=== PATIENT | male | born 1930 | race Caucasian/White ===

== ENCOUNTER 2016-08-04 21:24 | Inpatient (IN) | payer OTHER ==
[~2016-08-04] VITALS: Ht 162.6 cm; Wt 95.3 kg
[~2016-08-04 21:24] MED LIST: ASPIRIN EC325 MG PO; CARDIZEM CD120 MG PO; ELIQUIS5 MG PO; FLOMAX0.4 M1 PO; KEFLEX500 MG PO; LISINOPRIL10 M1 PO; LOPRESSOR50 MG PO; METOPROLOL TART50 MG PO; OMEPRAZOLE20 M2 PO; SIMVASTATIN80 MG PO
--- NOTE | 2016-08-04 22:21 | ED DYSPNEA/ASTHMA COMPLAINT ---
History of Present Illness General Chief Complaint: Dyspnea (COPD, CHF, Other) Stated Complaint: BAD COUGH/DIFF BREATHING Source: patient Exam Limitations: no limitations Vital Signs & Intake/Output Vital Signs & Intake/Output Vital Signs Date Time Temp Pulse Resp B/P Pulse O2 O2 Flow FiO2 Ox Delivery Rate 08/05 1100 Nasal 2.0L Cannula 08/05 1059 97 Nasal 2.0L Cannula 08/05 0959 130/72 08/05 0958 130/72 08/05 0656 98.4 74 20 110/54 94 08/05 0237 95 Nasal 2.0L Cannula 08/05 0200 98.5 75 20 114/56 93 Room Air 08/05 0145 95 Nasal 2.0L Cannula 08/05 0030 98.2 74 20 109/55 94 Room Air 08/05 0002 94 Room Air 08/05 0002 24 88 Room Air 08/05 0002 20 94 Room Air 08/04 2138 98.1 57 28 115/65 96 Room Air ED Intake and Output 08/05 0000 08/04 1200 Intake Total Output Total Balance Patient 206 lb Weight Allergies Coded Allergies: NO KNOWN ALLERGIES (10/04/13) Triage Note: PT TO ED C/O BAD COUGH, DIFF BREATHING AND CHEST PAIN WITH COUGH AND DEEP INSPIRATION "ALL DAY" ALSO C/O HEADACHE. RR 28 PT STATES "THIS ALWAYS JHAPPENS WHEN MY BREATHING GETS BAD" PMH OF COPD Triage Nurses Notes Reviewed? yes Onset: Gradual Duration: constant Timing: recent history Severity: severe Activities at Onset: none Prior Episodes/Possible Cause: occasional episodes HPI: Patient is a 85-year-old male with a past medical history of COPD not on home O2 , atrial fibrillation currently on ELIQUIS who presents emergency room saying that today patient had a gradual onset of not feeling well productive yellow cough and shortness of breath and dyspnea on exertion. Patient states that he took nebulizer treatments at home without improvement of his symptoms. Positive sick contacts prior to onset of symptoms by family members. Denies any fevers but does have chills. Denies any chest pain or pain jaw pain nausea vomiting leg swelling, hemoptysis. Patient is a former smoker (EVERARDO ROJO) Reconcile Medications Albuterol Sulfate (Proair Hfa) 90 MCG HFA.AER.AD 2 PUF INH Q4-6 PRN PRN COPD (Reported) Apixaban (Eliquis) 5 MG TAB 5 MG PO BID ATRIAL FIBRILATION TWICE DAILY DILTIAZEM HCL (Cardizem Cd) 120 MG CER 120 10 PO DAILY HYPERTENSION Ipratropium/Albuterol Sulfate (Iprat-Albut 0.5-3(2.5) MG/3 Ml) 0.5 MG-3 MG (2.5 MG BASE)/3 ML AMPUL.NEB 1 VIAL INH DAILY PRN COPD (Reported) Lisinopril 10 MG TABLET 1 TAB PO DAILY BP (Reported) Metoprolol Tartrate (Lopressor) 50 MG TAB 50 MG PO BID heart rate Multivitamin (One Daily Multivitamin) 1 EACH TABLET 1 TAB PO DAILY SUPPLEMENT (Reported) Omeprazole 20 MG CAPSULE.DR 1 CAP PO DAILY GI (Reported) Psyllium Husk (Metamucil) 3.4 GRAM/5.4 GRAM POWDER 1 Scoopful PO QPM PRN CONSTIPATION (Reported) Tamsulosin HCl (Flomax) 0.4 MG CAP.ER.24H 2 CAP PO DAILY PROSTATE (Reported) (THUAN VAZQUEZ,ANALI) Past History Travel History Traveled to [place] past 21 day No Medical History Any Pertinent Medical History? see below for history Neurological: NONE EENT: tonsillectomy Cardiovascular: CAD, hypertension Respiratory: COPD Gastrointestinal: RECTAL ABCESS 25 YRS AGO HIATAL HERNIA Hepatic: NONE Renal: NONE, nephrolithiasis Musculoskeletal: NONE, osteoarthritis Psychiatric: NONE Endocrine: NONE Blood Disorders: NONE Cancer(s): prostate cancer MANAGER OF INTERNAL AUDIT/Reproductive: NONE Other Medical Hx: appendectomy, tonsillectomy, back surgery for herniated disc, right inguinal hernia repiar, esophageal reflux, osteoarthritis adenoma of the prostate, coronary artery disease s/p CABG, COPD, hypertension History of MRSA: Yes History of VRE: No History of CDIFF: No Pneumonia Vaccine: 03/16/12 Influenza Vaccine: 03/16/14 Surgical History Surgical History: STENTS CARDIAC BYPASS Psychosocial History Who do you live with Spouse Services at Home None What is your primary language Persian Tobacco Use: Quit >30 days ago ETOH Use: occasional use Illicit Drug Use: denies illicit drug use Family History Family History, If Any: FATHER FH: diabetes mellitus FATHER Relation not specified for: FH: hypertension Hx Contributory? No (NAILA LEON,EVERARDO) Review of Systems Review of Systems Constitutional: Reports: see HPI, chills. Denies: fever. EENTM: Reports: no symptoms. Respiratory: Reports: see HPI, cough, short of breath. Cardiovascular: Reports: see HPI. Denies: chest pain, palpitations. GI: Reports: no symptoms. Genitourinary: Reports: no symptoms. Musculoskeletal: Reports: no symptoms. Skin: Reports: no symptoms. Neurological/Psychological: Reports: no symptoms. Hematologic/Endocrine: Reports: no symptoms. Immunologic/Allergic: Reports: no symptoms. All Other Systems: Reviewed and Negative (EVERARDO ROJO) Physical Exam Physical Exam General Appearance: obese, MILD RESPIRATORY DISTRESS Respiratory: chest non-tender, quiet respiration, decreased breath sounds, wheezing (MILD EXPIRATORY) Comments: HEENT: Normal EENT exam, extraocular motion intact, no nystagmus. Pupils equally round and reactive to light and accommodation. Nose is atraumatic. External auditory canal and Tympanic membranes clear. Pharynx normal. No swelling or edema. Neck: Supple, no lymphadenopathy, normal range of motion without pain or tenderness Back: Nontender, no CVA tenderness. Cardiovascular: Regular rate and rhythms no murmurs rubs or gallops, normal JVP Abdomen: Soft, nontender nondistended, no appreciable organomegaly. Normal bowel sounds. No ascites Extremity: Bilateral lower extremity trace pitting edema noted, no calf tenderness to palpation, normal and equal pulses. Neuro: Alert oriented x3, motor sensory normal, Skin: No appreciable rash on exposed skin, skin is warm and dry. Psych: Mood and affect is normal, memory and judgment is normal. Core Measures ACS in differential dx? Yes Severe Sepsis Present: No Septic Shock Present: No (EVERARDO ROJO) Progress Differential Diagnosis: asthma, AMI, bronchitis, costochondritis, CHF, COPD, musculoskeletal pain, pericarditis, pulmonary embolism, pneumonia, pneumothorax, rib fracture, unstable angina Plan of Care: Orders Procedure Date/time Status Heart Healthy Diet 08/05 B Active RT: Evaluation 08/05 1100 Active Change service to 08/05 0725 Active CBC WITHOUT DIFFERENTIAL 08/05 0634 Complete Vital Signs 08/05 015 Active Teach/Educate 08/05 015 Active Nutritional Intake, Monitor 08/05 015 Active Isolation 08/05 0150 Active Intake & Output 08/05 015 Active Patient Care Conference 08/05 0150 Active Activity/Ambulation 08/05 015 Active TRC EVALUATION (GEN) 08/05 0122 Complete OXYGEN SETUP (GEN) 08/05 0122 Complete Pathway - chart 08/05 0122 Active House Staff 08/05 0122 Active Patient Data 08/05 0122 Active Code Status 08/05 0122 Active Admit to inpatient 08/05 0031 Active Vital Signs 08/05 0031 Active Patient Data 08/05 0026 Active THERAPIST ORDERS 08/05 UNK Complete VTE Mechanical Prophylaxis 08/05 UNK Active MISSING MEDICATION FORM 08/05 UNK Active LOWER RESPIRATORY CULTURE 08/04 2238 Active Telemetry/Pumpman 08/04 2218 Active RAPID VIRAL INFLUENZA A 08/04 2218 Complete BLOOD CULTURE 08/04 2218 Active TROPONIN LEVEL 08/04 2218 Complete D-DIMER 08/04 2218 Complete COMPREHENSIVE METABOLIC PANEL 08/04 2218 Complete CBC WITHOUT DIFFERENTIAL 08/04 2218 Complete B-TYPE NATRIURETIC PEP (BNP) 08/04 2218 Complete Intake & Output 08/04 2200 Active EKG 08/04 2125 Active Current Medications Sig/Nestor Start time Last Medication Dose Stop Time Status Admin Ipratropium [place] 2.5 ML BID 08/05 220 AC (Atrovent) Diltiazem HCl 120 MG DAILY 08/05 1000 AC (Cardizem CD) Enoxaparin Sodium 40 MG DAILY 08/05 1000 CAN (Lovenox) Lisinopril 10 MG DAILY 08/05 1000 CAN (Prinivil) Polyethylene Glycol 17 GM DAILY PRN 08/05 0145 AC (Miralax) Acetaminophen 650 MG Q6P PRN 08/05 0130 AC (Tylenol) Laboratory Tests 08/05/16 0830: CBC w Diff NO MAN DIFF REQ, RBC 4.51 L, MCV 83.0, MCH 27.9, RDW 15.2 H, MPV 8.3, Gran % 95.1 H, Lymphocytes % 4.2 L, Monocytes % 0.7 L, Eosinophils % 0, Basophils % 0 L, Absolute Granulocytes 7.4 H, Absolute Lymphocytes 0.3 L, Absolute Monocytes 0.1 L, Absolute Eosinophils 0, Absolute Basophils 0, PUBS MCHC 33.6 08/04/165: Anion Gap 10, Estimated GFR > 60, BUN/Creatinine Ratio 28.0 H, Glucose 116 H, Calcium 9.0, Total Bilirubin 0.7, AST 24, ALT 28, Alkaline Phosphatase 83, Troponin I 0.01, Svv-I-Elaojegepby Pept 339 H, Total Protein 7.2, Albumin 4.0, Globulin 3.2, Albumin/Globulin Ratio 1.3, D-Dimer < 200, CBC w Diff MAN DIFF ORDERED, RBC 4.68 L, MCV 83.1, MCH 27.8, RDW 15.3 H, MPV 7.9, Gran % 86.3 H, Lymphocytes % 5.8 L, Monocytes % 6.3, Eosinophils % 1.4, Basophils % 0.2, Absolute Granulocytes 8.6 H, Segmented Neutrophils 79 H, Band Neutrophils 6 H , Absolute Lymphocytes 0.6 L, Lymphocytes 9 L, Monocytes 4, Absolute Monocytes 0.6, Eosinophils 2, Absolute Eosinophils 0.1, Absolute Basophils 0, Platelet Estimate ADEQUATE, Anisocytosis 1+, PUBS MCHC 33.5 Microbiology 08/04 2244 NASOPHARYN: Influenza Virus A & B Rapid Smear - COMP 08/04 2244 BLOOD: Blood Culture - RES 08/04 2243 LOWER RESP: Respiratory Culture - RES 08/04 2243 LOWER RESP: Gram Stain - RES 08/04 2229 BLOOD: Blood Culture - RES Patient had IV steroids and nebulizer treatment and IV azithromycin for consistent COPD. Patient was ambulated down approximately 15 feet noted to be in mild respiratory distress and O2 saturation was 88% room air. Patient will be admitted for concerns of COPD. (EVERARDO ROJO) Diagnostic Imaging: Viewed by Me: Radiology Read. CXR Impression: SEE COMMENTS Initial ED EKG: SINUS RHYTHM NOTED AT 59 BPM, RBBB Comments: PATIENT: SHEILA LAURA PRESENT AGE: 85 PATIENT ACCOUNT NO: [id number] : 29 LOCATION: [facility] ORDERING PHYSICIAN: EVERARDO LEON SERVICE DATE: 08/04/16 EXAM TYPE: RAD - XRY-PORTABLE CHEST XRAY EXAMINATION: XR PORTABLE CHEST CLINICAL INFORMATION: Shortness of breath. COMPARISON: Chest radiography 02/16/2015. TECHNIQUE: Portable AP view of the chest was obtained. FINDINGS: Sternotomy wires and surgical material redemonstrated. The lungs are well expanded. Mild peribronchial thickening bilaterally. No lobar consolidation, overt pulmonary edema, pleural effusion, or pneumothorax. Mediastinal contours are unchanged. No acute osseous abnormalities. IMPRESSION: Bilateral peribronchial thickening may reflect a degree of small airways inflammation. No evidence of lobar pneumonia or overt CHF. (EVERARDO ROJO) Departure Departure Disposition: STILL A PATIENT Condition: Stable Clinical Impression Primary Impression: COPD (chronic obstructive pulmonary disease) Secondary Impressions: Upper respiratory infection Referrals: FALLON VAZQUEZ,MARLA Mosher (PCP/Family) Departure Forms: Customer Survey General Discharge Information Admission Note Spoke With: MARCIN PISANO MD Documentation of Exam: Documentation of any treatments & extenuating circumstances including Concerns Regarding Discharge (functional status, medication knowledge or non-compliance, living conditions, etc.) that warrant an admission rather than observation: [ Discussed patient with Dr. PISANO who agrees with general medicine admission for concerns of COPD. Patient requires IV steroids, nebulizer treatments, pulmonary consultation outpatient treatment at this time due to comorbidities and hypoxia upon ambulation would BE medically harmful.] (EVERARDO ROJO) PA/CARE TRANSPORT NURSE Co-Sign Statement Statement: ED Attending supervision documentation- [X] I saw and evaluated the patient. I have also reviewed all the pertinent lab results and diagnostic results. I agree with the findings and the plan of care as documented in the PA's/CARE TRANSPORT NURSE's documentation. [X] I have reviewed the ED Record and agree with the PA's/CARE TRANSPORT NURSE's documentation. [] Additions or exceptions (if any) to the PAs/CARE TRANSPORT NURSE's note and plan are summarized below: [] (THUAN VAZQUEZ,ANALI) Critical Care Note Critical Care Note Critical Care Time: non-applicable (EVERARDO ROJO)
--- NOTE | 2016-08-04 22:48 | RADIOLOGY REPORT ---
EXAMINATION: XR PORTABLE CHEST CLINICAL INFORMATION: Shortness of breath. COMPARISON: Chest radiography 02/16/2015. TECHNIQUE: Portable AP view of the chest was obtained. FINDINGS: Sternotomy wires and surgical material redemonstrated. The lungs are well expanded. Mild peribronchial thickening bilaterally. No lobar consolidation, overt pulmonary edema, pleural effusion, or pneumothorax. Mediastinal contours are unchanged. No acute osseous abnormalities. IMPRESSION: Bilateral peribronchial thickening may reflect a degree of small airways inflammation. No evidence of lobar pneumonia or overt CHF.
[2016-08-04 22:50] LABS: ABSOLUTE BASOPHIL COUNT 0 /CUMM (0.0-0.2); ABSOLUTE EOSINOPHIL COUNT 0.1 /CUMM (0.0-0.7); ABSOLUTE GRANULOCYTE CT 8.6 /CUMM (1.4-6.5); ABSOLUTE LYMPH COUNT 0.6 /CUMM (1.2-3.4); ABSOLUTE MONOCYTE COUNT 0.6 /CUMM (0.10-0.60); BASOPHIL % 0.2 % (0.0-2.0); EOSINOPHIL % 1.4 % (0-5); GRANULOCYTE % 86.3 % (42.2-75.2); HEMATOCRIT 38.9 % (42-52); MEAN CORPUSCULAR HGB 27.8 PG (27.0-31.0); MEAN CORPUSCULAR HGB CONC 33.5 G/DL (33.0-37.0); MEAN CORPUSCULAR VOLUME 83.1 FL (80.0-94.0); MEAN PLATELET VOLUME 7.9 FL (7.4-10.4); PLATELET COUNT 306 /CUMM (130-400); RBC DISTRIBUTION WIDTH 15.3 % (11.5-14.5); RED BLOOD CELL CT 4.68 /CUMM (4.70-6.10)
[2016-08-05] MEDS ORDERED: PROAIR HFA8.5 GM INH (01:17)
[2016-08-05] MEDS ORDERED: IPRAT-ALBUT 0.5-3 ML INH (01:18)
[2016-08-05] MEDS ORDERED: ONE DAILY MULT1 EAC2 PO (01:18)
--- NOTE | 2016-08-05 01:18 | History & Physical ---
JASSON MENEZES MD 08/05/16 0117: General Information and HPI Source of Information: patient, family, old records Exam Limitations: no limitations History of Present Illness: Patient is an 85-year-old male with significant past medical history of coronary disease, s/p stenting, s/p quadruple bypass in 1984, hypertension, hyperlipidemia, atrial fibrillation, on Eliquis, history of Calix's esophagus, GERD, hiatus hernia, history of prostate cancer treated with radiotherapy, restrictive lung disease, COPD not on home oxygen therapy, presented with chief complaints of sudden onset of shortness of breath and bouts of cough, when he woke up from the sleep. He tried albuterol inhaler and nebulizer at home without any improvement so came to [facility]. As he was desaturating to 87% after walking we admitted him to general medical floor for further management. Patient claims that he is having a COPD not on any home oxygen. He was treated with since last year without any episodes of exacerbation. When he woke up in the morning he started having COUGH with yellow sputum but denies blood and, shortness of breath. He also had occasional episodes of chills and palpitations and even an episode of diarrhea on yesterday. Denies fever, nausea, vomiting, abdominal pain, constipation, dysuria, sick contact, denies any recent trauma, never been intubated. He also has history of chronic leg swelling and according to the daughter,he was well evaluated by Dr. Pierre, and it is due to CHF. He is having history of prostate cancer which was diagnosed 20 years ago and was treated by radiotherapy not on any treatment now. Personal history-he is living with his . He is able to do all his daily activity and uses cane for walking . He quit smoking in 1983. According to him, he started smoking when he was 17-year-old and was smoking around 1ppd. He drinks alcohol socially around half glass of wine daily. He had his flu shot and pneumococcal shot. 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 spouse Services at Home: None Primary Language: Uruguayan ETOH Use: occasional use Illicit Drug Use: denies illicit drug use Living Will? yes Functional Ability ADLs Independent: dressing, eating, toileting, bathing. Ambulation: independent, cane, walker, non-ambulatory IADLs Independent: shopping, housework, finances, food prep, telephone, transportation , medication admin. Review of Systems Review of Systems Constitutional: Reports: chills, weakness. Denies: diaphoresis, fever, malaise. EENTM: Denies: no symptoms. Cardiovascular: Reports: edema, peripheral edema. Denies: chest pain, orthopena, palpitations. Respiratory: Reports: cough, short of breath, sputum production, wheezing. Denies: hemoptysis, orthopnea, stridor. GI: Denies: abdominal pain, bloating, constipation, diarrhea, distention, bowel incontinence, melena, nausea, bloody stool. Genitourinary: Denies: discharge, dysuria, frequency, hematuria, hesitation, nocturia, pain. Musculoskeletal: Denies: back pain, gout, joint pain, joint swelling, muscle pain, muscle stiffness. Skin: Denies: no symptoms. Neurological/Psychological: Denies: anxiety, depressed. Exam & Diagnostic Data Last 24 Hrs of Vital Signs/I&O Vital Signs Date Time Temp Pulse Resp B/P Pulse O2 O2 Flow FiO2 Ox Delivery Rate 08/05 0030 98.2 74 20 109/55 94 Room Air 08/05 0002 94 Room Air 08/05 0002 24 88 Room Air 08/05 0002 20 94 Room Air 08/04 2138 98.1 57 28 115/65 96 Room Air Intake & Output 08/05 0800 08/05 0000 08/04 1600 Intake Total Output Total Balance Patient 93.44 kg Weight Physical Exam General Appearance Alert, Oriented X3, Cooperative, No Acute Distress Skin No Rashes, No Breakdown HEENT Atraumatic, PERRLA, EOMI Neck Supple, No JVD, No thryomegaly Cardiovascular Normal S1, Normal S2, irregular Lungs decrease air entry bilaterally Abdomen Soft, No Tenderness Neurological Normal Speech Extremities bilateral pitting edema Vascular Normal Pulses, Pulses Symmetrical Last 24 Hrs of Labs/Joel: Laboratory Tests 08/04/162234: Anion Gap 10, Estimated GFR > 60, BUN/Creatinine Ratio 28.0 H, Glucose 116 H, Calcium 9.0, Total Bilirubin 0.7, AST 24, ALT 28, Alkaline Phosphatase 83, Troponin I 0.01, Ziu-G-Sanrrvbxuuo Pept 339 H, Total Protein 7.2, Albumin 4.0, Globulin 3.2, Albumin/Globulin Ratio 1.3, D-Dimer < 200, CBC w Diff MAN DIFF ORDERED, RBC 4.68 L, MCV 83.1, MCH 27.8, RDW 15.3 H, MPV 7.9, Gran % 86.3 H, Lymphocytes % 5.8 L, Monocytes % 6.3, Eosinophils % 1.4, Basophils % 0.2, Absolute Granulocytes 8.6 H, Segmented Neutrophils 79 H, Band Neutrophils 6 H , Absolute Lymphocytes 0.6 L, Lymphocytes 9 L, Monocytes 4, Absolute Monocytes 0.6, Eosinophils 2, Absolute Eosinophils 0.1, Absolute Basophils 0, Platelet Estimate ADEQUATE, Anisocytosis 1+, PUBS MCHC 33.5 Microbiology 08/04 2244 NASOPHARYN: Influenza Virus A & B Rapid Smear - COMP 08/04 2244 BLOOD: Blood Culture - RECD 08/04 2243 LOWER RESP: Respiratory Culture - RES 08/04 2243 LOWER RESP: Gram Stain - RES 08/04 2229 BLOOD: Blood Culture - RECD Diagnostic Data EKG Results AF, HR -59 CXR Results bilateral peribronchial thickening may reflects degree of small airway inflammation Assessment/Plan Assessment: Patient is an 85-year-old male with significant past medical history of coronary disease, s/p stenting, s/p quadruple bypass in 1984, hypertension, hyperlipidemia, atrial fibrillation, on Eliquis, history of Calix's esophagus, GERD, hiatus hernia, history of prostate cancer treated with radiotherapy, restrictive lung disease, COPD not on home oxygen therapy, presented with chief complaints of sudden onset of shortness of breath and bouts of cough, when he woke up from the sleep. He tried albuterol inhaler and nebulizer at home without any improvement so came to [facility]. As he was desaturating to 87% after walking we admitted him to general medical floor for further management.Vital signs at the time of admission-temperature 98.1, pulse 57, respiratory 28, blood pressure 115/65, SPO2 96% Pertinent labs-hemoglobin 13.0, granulocyte 86.3, BUN 28, glucose 116, proBNP 339, negative flu test, Chest x-ray 08/04/2016- bilateral peribronchial thickening may refla degree of small airway inflammation Echocardiogram 2014-LVEF 45%, LVH, RVD, [id number]-zqmtiubf pulmonary hypertension Problem list COPD acute exacerbation COPD not on home oxygen Restrictive lung disease Coronary artery disease s/p quadruple bypass in 1984 Hypertension, Hyperlipidemia Atrial fibrillation, on Eliquis Nephrolithiasis Osteoarthritis GERD History of Calix's esophagus History of prostate cancer History of appendicectomy, history of tonsillectomy, history of back surgery for herniated disc, history of right inguinal hernia repair, Plan - Acute exacerbation of COPD- With the patient having history of COPD but not on any home oxygen. He started having acute shortness of breath along with the cough and yellowish sputum. He was desaturating to less than 88 on walking. He has increased oxygen requirement , probably secondary to infection/inflammation of the alveoli. It can be a viral infection, but not any since the flu test is negative, or can be Bacterial as his sputum is yellowish in color * We will admit the patient and the general medical floor * We will supplement oxygen to bring SPO2 more than 92% * We'll start patient on injection Solu-Medrol 40 milligrams IV 8 hourly * We'll start patient on inj azithromycin 500 milligrams IV once a day * Tablet Mucinex 600 milligrams twice a day * Tessalon Perles as needed * TRC/nebulization, including Atrovent and Proventil * We will place a consult for Dr. High and follow the recommendation * Incentive spirometry Hypertension - As the patient has having acute COPD exacerbation, I would like to hold metoprolol for a while. * We'll continue tab lisinopril Atrial fibrillation, on Eliquis * We'll continue tablet diltiazem CD 120 milligrams daily * We'll continue tablet Eliquis 5 mgs BID Hyperlipidemia * We'll continue all home medication GERD * We will continue patient on Omeprazole 20 Milligrams OD AC Diet-heart healthy diet DVT prophylaxis-ALP S/Eliquis CODE STATUS-full code As Ranked By This Provider Problem List: 1. COPD with acute exacerbation 2. Hypertension 3. Hyperlipidemia 4. Afib 5. CAD (coronary atherosclerotic disease) 6. BPH (benign prostatic hyperplasia) Core Measures/Miscellaneous Acute Coronary Syndrome ACS Diagnosis: No Cerebrovascular Accident CVA/TIA Diagnosis: No Congestive Heart Failure CHF Diagnosis: No Venous Thromboembolism VTE Risk Factors: Age > 40 VTE Prophylaxis Ordered Inpt: Mechanical (ALPS/TEDS) No Mech VTE prophylaxis d/t: No contraindications No VTE Pharm Prophylaxis d/t: No contraindications VTE Diagnosis: No VTE Type: NONE VTE Confirmed by (Test): NONE Severe Sepsis Severe Sepsis Present: No Septic Shock Septic Shock Present: No Miscellaneous Documentation Attending Case Discussed With: MARCIN PISANO MD Primary Care Physician: MARLA LEHMAN MD Patient sees these Specialists Dr. Ignacio High Level of Patient Care: General Medicine FADY WHITE 08/05/16 0131: General Information and HPI Allergies/Medications Home Med list Albuterol Sulfate (Proair Hfa) 90 MCG HFA.AER.AD 2 PUF INH Q4-6 PRN PRN COPD (Reported) Apixaban (Eliquis) 5 MG TAB 5 MG PO BID ATRIAL FIBRILATION TWICE DAILY DILTIAZEM HCL (Cardizem Cd) 120 MG CER 120 10 PO DAILY HYPERTENSION Ipratropium/Albuterol Sulfate (Iprat-Albut 0.5-3(2.5) MG/3 Ml) 0.5 MG-3 MG (2.5 MG BASE)/3 ML AMPUL.NEB 1 VIAL INH DAILY PRN COPD (Reported) Lisinopril 10 MG TAB 10 MG PO DAILY HIGH BP (Reported) Metoprolol Tartrate (Lopressor) 50 MG TAB 50 MG PO BID heart rate Multivitamin (One Daily Multivitamin) 1 EACH TABLET 1 TAB PO DAILY SUPPLEMENT (Reported) Omeprazole 20 MG ECC 20 MG PO DAILY HEARTBURN (Reported) Psyllium Husk (Metamucil) 3.4 GRAM/5.4 GRAM POWDER 1 Scoopful PO QPM PRN CONSTIPATION (Reported) TAMSULOSIN HCL (Tamsulosin Hydrochloride) 0.4 MG CAP 2 CAP PO DAILY PROSTATE (Reported) Resident Review Statement Resident Statement: discussed with underwriting intern Other Findings: He is 85-year-old man with past medical history of COPD not on home oxygen, coronary artery disease status post CABG, A. fib on Eliquis, hypertension, BPH, history of prostate cancer status post radiotherapy, osteoarthritis, kidney stones, systolic heart failure with ejection fraction 45% and pulmonary hypertension presented to ER with complaint of Bad cough and difficulty breathing. According to patient yesterday morning he woke up coughing really bad and he felt like he can not breathe. Cough is productive and bringing up yellow phlegm. He also reports chills, feeling dizzy and intermittent palpitations. He has chronic bilateral lower extremity swelling that becomes obvious at the end of the day. Patient wears compression stockings every day. Denies any chest pain, nausea, vomiting, diarrhea, abdominal pain, any change in urinary habits. He reports constipation. No sick contacts around him. No recent long travel. Patient got his flu and pneumonia shot this year. Vitals on admission: Temperature 90.8, pulse 57, respiratory rate 28, blood pressure 1:15/65 and oxygen saturation 96% on room air. He desaturated to 88% on room air upon ambulation. Positive physical exam findings: Decreased air entry in lung bases, trace edema bilateral lower extremities Pertinent labs: ProBNP 339 EKG: Normal sinus rhythm with no acute ST-T wave changes. Chest x-ray showed small airways inflammation but no evidence of lobar pneumonia or CHF In ER patient got nebulization treatment, Solu-Medrol and Zithromax. He also got Mucinex. Assessment and plan He is 85-year-old man with past medical history of COPD not on home oxygen, coronary artery disease status post CABG, A. fib on Eliquis, hypertension, BPH, history of prostate cancer status post radiotherapy, osteoarthritis, kidney stones, systolic heart failure with ejection fraction 45% and pulmonary hypertension. Problem list 1. Acute hypoxic respiratory failure secondary to COPD exacerbation. Flu test negative 2. History of A. fib, coronary artery disease status post CABG, systolic heart failure with ejection fraction 45%, pulmonary hypertension 3. History of hypertension 4. History of BPH 5. History of GERD 6. History of constipation PLAN We will admit patient on general medicine floor. Vitals every shift. Keep oxygen saturation more than 92%. Follow-up blood and sputum cultures. TRC nebs. We will continue IV azithromycin and Solu-Medrol. Continue Mucinex. Pulm consult in a.m. We will continue all his home medications except lisinopril as BP is on the lower side right now. We will restart once blood pressure rises. Pain management pathway. Patient is an Eliquis. Heart healthy diet. 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 He tried his inhalers/nebs with no relief. He received his flu and pneumonia vaccine last year. No recent travel. Sick contact daughter was treated for flu however, she was not in contact with patient. Vitals stable except for O2 sats 88% RA --> 95% on 2L. On ambulation, sats dropped to 88% on RA and patient was visible 'winded'. Chest b/l reduced air entry, rare wheezes. Labs: WBC 10, bands 6, D-dimer neg, BUN 28, trop neg. CXR: bilateral peribronchial thickening, small airway inflammation, no pneumonia or CHF. EKG: SR, RBBB, Qtc 428. Flu swab neg. Echo (2015): EF 45%, LVH, mild to moderate pulm HTN. [employer]1. Acute hypoxic respiratory failure, acute bronchitis and COPD exacerbation. GM admit, TRC nebs, sputum culture, IV steroids, IV azithro for 5 days. Mucinex BID. Pulm consult Dr. High. Keep O2 sats > 92%. 2. Bandemia, without leukocytosis. Probably in the setting of bronchitis. Will monitor CBC in AM. 3. Afib. Ct. Eliquis, diltiazem and metoprolol. 4. HTN. Ct. Lisinopril with holding parameters for SBP < 100. DVT ppx Eliquis. Full code.
[2016-08-05] MEDS ORDERED: METAMUCIL660 GM PO (01:30)
[2016-08-05 02:00] VITALS: BP 114/56
--- NOTE | 2016-08-05 04:40 | Admission Certification ---
Admission Certification Certification Statement - As attending physician, I certify that at the time of - admission, based on clinical presentation, severity of - symptoms, need for further diagnostic testing and - therapeutic interventions, and risk of adverse outcomes - without in-hospital treatment, in my clinical assessment, - this patient requires an acute hospital stay for a minimum - of two nights or longer. I have also considered psychsocial - factors such as support system, advanced age, financial - issues, cognitive issues, and failed out-patient treatments, - past re-admission history, safety of patient, and lack of - compliance as applicable. Specific rationale supporting this admission is: Acute hypoxic respiratory failure, acute bronchitis, COPD exacerbation.
[2016-08-05 06:56] VITALS: BP 110/54
--- NOTE | 2016-08-05 07:18 | PN- Housestaff ---
GEORGINA VAZQUEZ,RIA 08/05/16 0717: Subjective Follow-up For: COPD exacerbation Subjective: the patient is admitted overnight for worsening shortness of breath and nonproductive cough. The patient denies any sick contacts or any recent travels. Review of Systems Constitutional: Reports: see HPI. Objective Last 24 Hrs of Vital Signs/I&O Vital Signs Date Time Temp Pulse Resp B/P Pulse O2 O2 Flow FiO2 Ox Delivery Rate 08/05 0656 98.4 74 20 110/54 94 08/05 0237 95 Nasal 2.0L Cannula 08/05 0200 98.5 75 20 114/56 93 Room Air 08/05 0145 95 Nasal 2.0L Cannula 08/05 0030 98.2 74 20 109/55 94 Room Air 08/05 0002 94 Room Air 08/05 0002 24 88 Room Air 08/05 0002 20 94 Room Air 08/04 2138 98.1 57 28 115/65 96 Room Air Intake & Output 08/05 1600 08/05 0800 08/05 0000 Intake Total 121 Output Total 300 Balance -179 Intake, IV 1 Intake, Oral 120 Number 0 Bowel Movements Output, Urine 300 Patient 210 lb 206 lb Weight Physical Exam General Appearance: Alert, Oriented X3 Skin: No Rashes, No Breakdown HEENT: Atraumatic, PERRLA Neck: Supple, No JVD, No thryomegaly Lymphatic: Axillary nl, Cervical nl Cardiovascular: Regular Rate, Normal S1, Normal S2 Lungs: bilateral decreased airway entry no persistent wheezing Abdomen: Normal Bowel Sounds, Soft Assessment/Plan Assessment: The patient is a 85-year-old male with a past medical history of hypertension, atrial fibrillation currently on Eliquis, COPD not on home oxygen who presented to the [facility] with worsening shortness of breath with pleuritic chest pain. Assessment 1. COPD exacerbation with not on home oxygen 2. Acute hypoxic respiratory failure with a saturation of 88% on room air at the time of admission 3. Chronic atrial fibrillation 4. History of hypertension Plan We will continue with IV Solu-Medrol 40 mg every 8 for today Continue with azithromycin for anti-inflammatory.(5 doses) Continue with rate control with metoprolol 50 mg twice a day and Eliquis for atrial fibrillation Plan to consult with Dr. High (as requested by the patient) Continue albuterol and ipratropium TRC and embolization Holding the lisinopril for now as the blood pressure is borderline elevated Resume when pressures better Add Robitussin for cough DVT PPX at all time FC Problem List: 1. Hyperlipidemia 2. Hypertension 3. COPD with acute exacerbation Pain Ratin Pain Location: Pleuritic chest pain Pain Goal: Pain 4 or less Pain Plan: . Tylenol Tomorrow's Labs & Rationales: CBC and physical Panel GILMAR GRIFFIN MD 08/05/16 1352: Attending MD Review Statement Attending Statement Attending MD Statement: examined this patient, discuss w/resident/PA/PHLEBOTOMY TECH, agreed w/resident/PA/PHLEBOTOMY TECH, reviewed EMR data (avail), discussed with nursing, amended to note Attending Assessment/Plan: The patient was seen and discussed with house staff. Agree with the plan of care as outlined.
[2016-08-05 09:03] LABS: ABSOLUTE BASOPHIL COUNT 0 /CUMM (0.0-0.2); ABSOLUTE EOSINOPHIL COUNT 0 /CUMM (0.0-0.7); ABSOLUTE GRANULOCYTE CT 7.4 /CUMM (1.4-6.5); ABSOLUTE LYMPH COUNT 0.3 /CUMM (1.2-3.4); ABSOLUTE MONOCYTE COUNT 0.1 /CUMM (0.10-0.60); BASOPHIL % 0 % (0.0-2.0); EOSINOPHIL % 0 % (0-5); GRANULOCYTE % 95.1 % (42.2-75.2); HEMATOCRIT 37.4 % (42-52); MEAN CORPUSCULAR HGB 27.9 PG (27.0-31.0); MEAN CORPUSCULAR HGB CONC 33.6 G/DL (33.0-37.0); MEAN PLATELET VOLUME 8.3 FL (7.4-10.4); PLATELET COUNT 298 /CUMM (130-400); RBC DISTRIBUTION WIDTH 15.2 % (11.5-14.5); RED BLOOD CELL CT 4.51 /CUMM (4.70-6.10); WHITE BLOOD CELL COUNT 7.8 /CUMM (4.8-10.8)
[2016-08-05 13:50] VITALS: BP 130/70
--- NOTE | 2016-08-05 15:13 | Cons- Pulmonary ---
General Information and HPI Consulting Request Date of Consult: 08/05/16 Requested By: med team History of Present Illness: Patient is an 85-year-old male with significant past medical history of coronary disease, s/p stenting, s/p quadruple bypass in 1984, hypertension, hyperlipidemia, atrial fibrillation, on Eliquis, history of Calix's esophagus, GERD, hiatus hernia, history of prostate cancer treated with radiotherapy, restrictive lung disease, COPD not on home oxygen therapy, presented with chief complaints of sudden onset of shortness of breath and bouts of cough, when he woke up from the sleep. He tried albuterol inhaler and nebulizer at home without any improvement so came to [facility]. As he was desaturating to 87% after walking we admitted him to general medical floor for further management. Patient claims that he is having a COPD not on any home oxygen. He was treated with since last year without any episodes of exacerbation. When he woke up in the morning he started having COUGH with yellow sputum but denies blood and, shortness of breath. He also had occasional episodes of chills and palpitations and even an episode of diarrhea on yesterday. Denies fever, nausea, vomiting, abdominal pain, constipation, dysuria, sick contact, denies any recent trauma, never been intubated. He also has history of chronic leg swelling and according to the daughter,he was well evaluated by Dr. Pierre, and it is due to CHF. He is having history of prostate cancer which was diagnosed 20 years ago and was treated by radiotherapy not on any treatment now. Personal history-he is living with his . He is able to do all his daily activity and uses cane for walking . He quit smoking in 1983. According to him, he started smoking when he was 17-year-old and was smoking around 1ppd. He drinks alcohol socially around half glass of wine daily. He had his flu shot and pneumococcal shot. Allergies/Medications Allergies: Coded Allergies: NO KNOWN ALLERGIES (10/04/13) Home Med List: Albuterol Sulfate (Proair Hfa) 90 MCG HFA.AER.AD 2 PUF INH Q4-6 PRN PRN COPD (Reported) Apixaban (Eliquis) 5 MG TAB 5 MG PO BID ATRIAL FIBRILATION TWICE DAILY DILTIAZEM HCL (Cardizem Cd) 120 MG CER 120 10 PO DAILY HYPERTENSION Ipratropium/Albuterol Sulfate (Iprat-Albut 0.5-3(2.5) MG/3 Ml) 0.5 MG-3 MG (2.5 MG BASE)/3 ML AMPUL.NEB 1 VIAL INH DAILY PRN COPD (Reported) Lisinopril 10 MG TABLET 1 TAB PO DAILY BP (Reported) Metoprolol Tartrate (Lopressor) 50 MG TAB 50 MG PO BID heart rate Multivitamin (One Daily Multivitamin) 1 EACH TABLET 1 TAB PO DAILY SUPPLEMENT (Reported) Omeprazole 20 MG CAPSULE.DR 1 CAP PO DAILY GI (Reported) Psyllium Husk (Metamucil) 3.4 GRAM/5.4 GRAM POWDER 1 Scoopful PO QPM PRN CONSTIPATION (Reported) Tamsulosin HCl (Flomax) 0.4 MG CAP.ER.24H 2 CAP PO DAILY PROSTATE (Reported) Review of Systems Comments Constitutional: Reports: chills, weakness. Denies: diaphoresis, fever, malaise. EENTM: Denies: no symptoms. Cardiovascular: Reports: edema, peripheral edema. Denies: chest pain, orthopena, palpitations. Respiratory: Reports: cough, short of breath, sputum production, wheezing. Denies: hemoptysis, orthopnea, stridor. GI: Denies: abdominal pain, bloating, constipation, diarrhea, distention, bowel incontinence, melena, nausea, bloody stool. Genitourinary: Denies: discharge, dysuria, frequency, hematuria, hesitation, nocturia, pain. Musculoskeletal: Denies: back pain, gout, joint pain, joint swelling, muscle pain, muscle stiffness. Skin: Denies: no symptoms. Neurological/Psychological: Denies: anxiety, depressed. Past History Travel History Traveled to [place] past 21 day No Medical History Blood Transfusion Hx: Yes Neurological: NONE EENT: tonsillectomy Cardiovascular: CAD, hypertension Respiratory: COPD Gastrointestinal: RECTAL ABCESS 25 YRS AGO HIATAL HERNIA Hepatic: NONE Renal: NONE, nephrolithiasis Musculoskeletal: NONE, osteoarthritis Psychiatric: NONE Endocrine: NONE Blood Disorders: NONE Cancer(s): prostate cancer [place]/Reproductive: NONE Other Medical Hx: appendectomy, tonsillectomy, back surgery for herniated disc, right inguinal hernia repiar, esophageal reflux, osteoarthritis adenoma of the prostate, coronary artery disease s/p CABG, COPD, hypertension Surgical History Surgical History: STENTS CARDIAC BYPASS Family History Relations & Conditions If Any: FATHER FH: diabetes mellitus FATHER Relation not specified for: FH: hypertension Psychosocial History Who Do You Live With? spouse Services at Home: None Primary Language: Danish Smoking Status: Former Smoker ETOH Use: occasional use Illicit Drug Use: denies illicit drug use Living Will? yes Functional Ability ADLs Independent: dressing, eating, toileting, bathing. Ambulation: independent, cane, walker, non-ambulatory IADLs Independent: shopping, housework, finances, food prep, telephone, transportation , medication admin. Exam & Diagnostic Data Last 24 Hrs of Vital Signs/I&O Vital Signs Date Time Temp Pulse Resp B/P Pulse O2 O2 Flow FiO2 Ox Delivery Rate 08/05 1350 97.9 90 20 130/70 97 Nasal 2.0L Cannula 08/05 1100 Nasal 2.0L Cannula 08/05 1059 97 Nasal 2.0L Cannula 08/05 0959 130/72 08/05 0958 130/72 08/05 0656 98.4 74 20 110/54 94 08/05 0237 95 Nasal 2.0L Cannula 08/05 0200 98.5 75 20 114/56 93 Room Air 08/05 0145 95 Nasal 2.0L Cannula 08/05 0030 98.2 74 20 109/55 94 Room Air 08/05 0002 94 Room Air 08/05 0002 24 88 Room Air 08/05 0002 20 94 Room Air 08/04 2138 98.1 57 28 115/65 96 Room Air Intake & Output 08/05 1600 08/05 0800 08/05 0000 Intake Total 121 Output Total 300 Balance -179 Intake, IV 1 Intake, Oral 120 Number 0 Bowel Movements Output, Urine 300 Patient 210 lb 206 lb Weight Last 48 Hrs of Labs/Joel: Laboratory Tests 08/05/16 0830: CBC w Diff NO MAN DIFF REQ, RBC 4.51 L, MCV 83.0, MCH 27.9, RDW 15.2 H, MPV 8.3, Gran % 95.1 H, Lymphocytes % 4.2 L, Monocytes % 0.7 L, Eosinophils % 0, Basophils % 0 L, Absolute Granulocytes 7.4 H, Absolute Lymphocytes 0.3 L, Absolute Monocytes 0.1 L, Absolute Eosinophils 0, Absolute Basophils 0, PUBS MCHC 33.6 08/04/16 2235: Anion Gap 10, Estimated GFR > 60, BUN/Creatinine Ratio 28.0 H, Glucose 116 H, Calcium 9.0, Total Bilirubin 0.7, AST 24, ALT 28, Alkaline Phosphatase 83, Troponin I 0.01, Ygf-K-Rjuxttusyzf Pept 339 H, Total Protein 7.2, Albumin 4.0, Globulin 3.2, Albumin/Globulin Ratio 1.3, D-Dimer < 200, CBC w Diff MAN DIFF ORDERED, RBC 4.68 L, MCV 83.1, MCH 27.8, RDW 15.3 H, MPV 7.9, Gran % 86.3 H, Lymphocytes % 5.8 L, Monocytes % 6.3, Eosinophils % 1.4, Basophils % 0.2, Absolute Granulocytes 8.6 H, Segmented Neutrophils 79 H, Band Neutrophils 6 H , Absolute Lymphocytes 0.6 L, Lymphocytes 9 L, Monocytes 4, Absolute Monocytes 0.6, Eosinophils 2, Absolute Eosinophils 0.1, Absolute Basophils 0, Platelet Estimate ADEQUATE, Anisocytosis 1+, PUBS MCHC 33.5 Microbiology 08/04 2245 NASOPHARYN: Influenza Virus A & B Rapid Smear - COMP Assessment/Plan Impression/Plan: Physical Exam General Appearance Alert, Oriented X3, Cooperative, No Acute Distress Skin No Rashes, No Breakdown HEENT Atraumatic, PERRLA, EOMI Neck Supple, No JVD, No thryomegaly Cardiovascular Normal S1, Normal S2, irregular Lungs decrease air entry bilaterally Abdomen Soft, No Tenderness Neurological Normal Speech Extremities bilateral pitting edema Vascular Normal Pulses, Pulses Symmetrical SIGNIFICANT DATA Chest x-ray showed bilateral peribronchial thickening suggestive of small airway disease Previous CT scan done in 2015 showed stable lung nodules for more than 2 year duration He has a large hiatal hernia 's previous echocardiogram done in 2015 showed ejection fraction which is reduced to 45% This blood work as noted white count was elevated at 10 hemoglobin 13 ever 6% bands upon admission IMPRESSION This is a gentleman with coronary artery disease with previous CABG and stent, hypertension, hyperlipidemia, atrial fibrillation on on eloquis, previous esophagitis, GERD, significant hiatal hernia, previous prostate cancer therapy, obstructive and restrictive lung disease, bilateral small lung nodules, cor pulmonale, now comes in with * Significant cough wheezing shortness of breath and gentleman with history of obstructive restrictive lung disease with high white count suggestive of bacterial bronchitis in a COPD exacerbation * Chest discomfort on and off with exertional dyspnea in a gentleman with reduced ejection fraction. Active coronary ischemia also needs to be ruled out. His troponin was negative his EKG was unremarkable. Nodes and his BNP was not significantly elevated * Significant hiatal hernia with GERD causing some of his symptoms * Morbid obesity with signs and symptoms suggestive of obstructive sleep apnea REC Continue current medications Switch him to by mouth prednisone Recheck his troponin Call cardiology for evaluation Sputum culture Omeprazole 40 mg once a day Keep the head of bed elevated If his chest pain chest discomfort persist will obtain a CTA of the chest to rule out PE. Consult Acknowledgment - Thank you for your consult request.
--- NOTE | 2016-08-05 15:35 | Discharge Summary ---
Visit Information Visit Dates Admission Date: 08/05/16 Discharge Date: 08/07/16 Hospital Course Course Attending Physician: GILMAR GRIFFIN MD Primary Care Physician: MARLA LEHMAN MD Hospital Course: This is an 85-year-old male with a past medical history of COPD not on home oxygen who presented to the with shortness of breath and dry cough. The patient denied any sick contacts or any recent travels. He was afebrile at home and also in the emergency department. He does not require oxygen at home but has been following up with Dr. Garcia for known for his COPD. He was compliant with his inhaler medications. The patient's vitals, labs, at the time of admission were as follows She was treated in the hospital for the following problems 1. COPD exacerbation 2. History of acute coronary syndrome status post stent placement IN 2006 3. All paroxysmal atrial fibrillation currently on adequate and rate controlled with Cardizem and metoprolol 4. History of hypertension She was admitted to the [facility] general medicine floor and was treated with COPD exacerbation with IV Solu-Medrol 40 mg every 12. The patient was then ultimately transitioned to by mouth prednisone. The patient will be discharged home to by mouth prednisone with 5 doses. He was also started on azithromycin OF WHICH 2 days of antibiotic therapy is left. During his hospital stay the patient complained of persistent pleuritic chest pain. The patient d-dimer levels initially when checked and were less than 200,Pulmonary embolism was low on the differential. He noted to rule out another acute coronary syndrome we checked serial troponins which were negative. Patient was also evalauated by DR Pierre. No cardiology workup was done as his sx were likley from acute bronchitis.We Switched his Lisinopril to Losartan 25 mg daily as this was also thought be contributing to the patients cough. Allergies: Coded Allergies: NO KNOWN ALLERGIES (10/04/13) Pertinent Lab Results: Laboratory Tests 08/05 08/04 0830 2235 Chemistry Sodium (137 - 145 mmol/L) 138 Potassium (3.5 - 5.1 mmol/L) 4.7 Chloride (98 - 107 mmol/L) 102 Carbon Dioxide (22 - 30 mmol/L) 27 Anion Gap (5 - 16) 10 BUN (9 - 20 mg/dL) 28 H Creatinine (0.7 - 1.2 mg/dL) 1.0 Estimated GFR (>60 ml/min) > 60 BUN/Creatinine Ratio (7 - 25 %) 28.0 H Glucose (65 - 99 mg/dL) 116 H Calcium (8.4 - 10.2 mg/dL) 9.0 Total Bilirubin (0.2 - 1.3 mg/dL) 0.7 AST (17 - 59 U/L) 24 ALT (21 - 72 U/L) 28 Alkaline Phosphatase (< 127 U/L) 83 Troponin I (<0.11 ng/ml) 0.01 Ucf-D-Hzqreiitype Pept (<125 pg/mL) 339 H Total Protein (6.3 - 8.2 g/dL) 7.2 Albumin (3.5 - 5.0 g/dL) 4.0 Globulin (1.9 - 4.2 gm/dL) 3.2 Albumin/Globulin Ratio (1.1 - 2.2 %) 1.3 Coagulation D-Dimer (70 - 232 ng/ml) < 200 Hematology CBC w Diff NO MAN DIFF REQ MAN DIFF ORDERED WBC (4.8 - 10.8 /CUMM) 7.8 10.0 RBC (4.70 - 6.10 /CUMM) 4.51 L 4.68 L Hgb (14.0 - 18.0 G/DL) 12.6 L 13.0 L Hct (42 - 52 %) 37.4 L 38.9 L MCV (80.0 - 94.0 FL) 83.0 83.1 MCH (27.0 - 31.0 PG) 27.9 27.8 RDW (11.5 - 14.5 %) 15.2 H 15.3 H Plt Count (130 - 400 /CUMM) 298 306 MPV (7.4 - 10.4 FL) 8.3 7.9 Gran % (42.2 - 75.2 %) 95.1 H 86.3 H Lymphocytes % (20.5 - 51.1 %) 4.2 L 5.8 L Monocytes % (1.7 - 9.3 %) 0.7 L 6.3 Eosinophils % (0 - 5 %) 0 1.4 Basophils % (0.0 - 2.0 %) 0 L 0.2 Absolute Granulocytes (1.4 - 6.5 /CUMM) 7.4 H 8.6 H Segmented Neutrophils (42.2 - 75.2 %) 79 H Band Neutrophils (0.0 - 5.0 %) 6 H Absolute Lymphocytes (1.2 - 3.4 /CUMM) 0.3 L 0.6 L Lymphocytes (20.5 - 51.1 %) 9 L Monocytes (1.7 - 9.3 %) 4 Absolute Monocytes (0.10 - 0.60 /CUMM) 0.1 L 0.6 Eosinophils (0 - 5.0 %) 2 Absolute Eosinophils (0.0 - 0.7 /CUMM) 0 0.1 Absolute Basophils (0.0 - 0.2 /CUMM) 0 0 Platelet Estimate (ADEQUATE) ADEQUATE Anisocytosis 1+ PUBS MCHC (33.0 - 37.0 G/DL) 33.6 33.5 Disposition Summary Disposition Principal Diagnosis: COPD EXACERBATION Additional Diagnosis: History of acute coronary syndrome History of atrial fibrillation History of hypertension Discharge Disposition: home or self care Discharge Instructions General Discharge Information Code Status: Full Code Patient's Diet: TOLERATED Patient's Activity: f/u woith pcp in 1 week of discharge Follow-Up Instructions/Appts: F/u with PCP in1 week of discharge F/u with your Benefits Consulting Analyst in 1 week Medications at Discharge Discharge Medications: Stop taking the following medications: Lisinopril (Lisinopril) 10 MG TABLET ORAL DAILY Omeprazole (Omeprazole) 20 MG CAPSULE.DR ORAL DAILY Continue taking these medications: Tamsulosin HCl (Flomax) 0.4 MG CAP.ER.24H 2 Capsule ORAL DAILY Comments: Last Taken:08/07/16 Time:9:30 AM Apixaban (Eliquis) 5 MG TAB 5 Milligram ORAL TWICE DAILY Qty = 60 Instructions: TWICE DAILY Comments: Last Taken:02/20/15 Time:9AM DILTIAZEM HCL (Cardizem Cd) 120 MG CER 120 10 ORAL DAILY Qty = 30 Comments: Last Taken:02/20/15 Time:2PM Metoprolol Tartrate (Lopressor) 50 MG TAB 50 Milligram ORAL TWICE DAILY Days = 30 Comments: Last Taken:02/20/15 Time:9AM Albuterol Sulfate (Proair Hfa) 90 MCG HFA.AER.AD 2 Puff Inhale through mouth EVERY 4-6 HOURS NEEDED as needed for COPD Qty = 9 Multivitamin (One Daily Multivitamin) 1 EACH TABLET 1 Tablet ORAL DAILY Comments: Last Taken:08/07/16 Time:9:3 AM Psyllium Husk (Metamucil) 3.4 GRAM/5.4 GRAM POWDER 1 Scoopful ORAL Every night as needed for CONSTIPATION Comments: NOT GIVEN IN THE HOSPITAL- [facility] GIVEN Ipratropium/Albuterol Sulfate (Iprat-Albut 0.5-3(2.5) MG/3 Ml) 0.5 MG-3 MG (2.5 MG BASE)/3 ML AMPUL.NEB 1 VIAL Inhale through mouth DAILY as needed for COPD Qty = 90 This prescription has been renewed Start taking the following new medications: Azithromycin (Azithromycin) 250 MG TABLET 250 Milligram ORAL DAILY Days = 2 No Refills Comments: Last Taken:08/07/16 Time:9:30 AM Prednisone (Prednisone) 20 MG TABLET 40 Milligram ORAL DAILY Days = 5 No Refills Comments: Last Taken:08/07/16 Time:9:30 AM Omeprazole (Omeprazole) 20 MG CAPSULE.DR 40 Milligram ORAL DAILY BEFORE BREAKFAST Qty = 30 No Refills Comments: Last Taken:08/07/16 Time:6:15 AM Losartan Potassium (Cozaar) 25 MG TABLET 1 Tablet ORAL DAILY Qty = 30 No Refills Copies To: FALLON VAZQUEZ,MARLA Mosher; RICK VAZQUEZ,AYANA Sharif Attending MD Review Statement Other Findings: The patient was seen and discussed with house staff. Agree with plan of care upon discharge.
--- NOTE | 2016-08-05 18:26 | Cons- Cardiology ---
General Information and HPI Consulting Request Date of Consult: 08/05/16 Requested By: GILMAR GRIFFIN MD History of Present Illness: Mr. Salazar is an 85 year old male who carries a history of hypertension and coronary artery disease, s/p coronary artery bypass grafting. Yesterday, Cruz developed a cough productive of scant clear to yellow sputum. He also had some chills but no objective fever. He also had some achiness. In addition to the cough this patient has shortness of breath and initially demonstrated low oxygen saturation. At baseline this patient does have some orthopnea. This patient is now in a sinus rhythm but has a history of atrial fibrillation with increased heart rate. He did have some chest discomfort in the past when in the atrial fibrillation and he did mention some visual changes with white spots in his vision that have now resolved. Cardiac workup has included a stress test that is positive for ischemia and we have been trying to treat this medically. it intermittently. When he does use the nitro it seems to help. On occasional his breathing requires inhaler therapy, although this is a stable symptom. In absolute terms, Cruz can walk approximately fifty feet before he starts to notice some degree of symptoms. It should be recalled that Cruz's bypass grafts are greater than thirty years old. The patient's stress test from a year ago showed a large inferior defect with mild improvement on resting images, consistent with myocardial ischemia. His overall ejection fraction was 65%. An echocardiogram also performed in July showed an ejection fraction of 55-60%, with inferior wall hypokinesis, which agreed well with the stress test. 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 In terms of cardiac valves, there was evidence of mild to moderate mitral regurgitation, trace tricuspid and pulmonic insufficiency, and trace to mild aortic regurgitation. There was no evidence of a hemodynamically significant valvular aortic stenosis. Cardiac workup has also included a Holter monitor due to suspected bradycardia. This study showedan average heart rate of 68 bpm. He did have 33,922 ventricular ectopic beats including two runs of ventricular tachycardia, the longest being four beats in length. A total of 78 supraventricular ectopic beats were noted including an 11 beat run. During the monitoring period, the patient did have some slight palpitations which were associated with normal sinus rhythm accompanied by multiple PVCs. Finally, Cruz has noted some bilateral calf discomfort as well as arthritic hip pain. He opted not to followup with vascular surgery for his lower extremity discomfort and was somewhat hesitant to take Pletal which was previously prescribed to him to help with this discomfort. In absolute terms, the patient can walk for approximately one third of a mile. The discomfort ceases when he stops walking. There are times when he needs to lean over slightly and put his hands on his hips. He also has bilateral hip pain with an occasionaness and tingling sensation in his arms and feet bilaterally which tends to occur when he lies on his back. Bypass consisted of a saphenous vein graft to the LAD as well as to the right coronary artery. A saphenous vein graft was also placed to the marginal artery; however, this graft is noted to be occluded. Cruz had a stress test performed in 1999 which showed minimal lateral wall ischemia, which was to be expected in consideration of his occluded graft to the marginal artery. It should be recalled that the patient's [place] left coronary artery system harbored a distal left main stenosis of 90%. The right coronary artery is totally occluded proximally. Allergies/Medications Allergies: Coded Allergies: NO KNOWN ALLERGIES (10/04/13) Home Med List: Albuterol Sulfate (Proair Hfa) 90 MCG HFA.AER.AD 2 PUF INH Q4-6 PRN PRN COPD (Reported) Apixaban (Eliquis) 5 MG TAB 5 MG PO BID ATRIAL FIBRILATION TWICE DAILY DILTIAZEM HCL (Cardizem Cd) 120 MG CER 120 10 PO DAILY HYPERTENSION Ipratropium/Albuterol Sulfate (Iprat-Albut 0.5-3(2.5) MG/3 Ml) 0.5 MG-3 MG (2.5 MG BASE)/3 ML AMPUL.NEB 1 VIAL INH DAILY PRN COPD (Reported) Lisinopril 10 MG TABLET 1 TAB PO DAILY BP (Reported) Metoprolol Tartrate (Lopressor) 50 MG TAB 50 MG PO BID heart rate Multivitamin (One Daily Multivitamin) 1 EACH TABLET 1 TAB PO DAILY SUPPLEMENT (Reported) Omeprazole 20 MG CAPSULE.DR 1 CAP PO DAILY GI (Reported) Psyllium Husk (Metamucil) 3.4 GRAM/5.4 GRAM POWDER 1 Scoopful PO QPM PRN CONSTIPATION (Reported) Tamsulosin HCl (Flomax) 0.4 MG CAP.ER.24H 2 CAP PO DAILY PROSTATE (Reported) Review of Systems Review of Systems: A twelve point review of systems is unremarkable. 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 Brother 1: of renal cell carcinoma. Brother 2: has prostate cancer Psychosocial History Who Do You Live With? spouse Services at Home: None Primary Language: [place] Smoking Status: Former Smoker (1ppd x 40 years/ quit in 1984) ETOH Use: occasional use Illicit Drug Use: denies illicit drug use Living Will? yes Functional Ability ADLs Independent: dressing, eating, toileting, bathing. Ambulation: independent, cane, walker, non-ambulatory IADLs Independent: shopping, housework, finances, food prep, telephone, transportation , medication admin. Exam & Diagnostic Data Vital Signs and I&O Vital Signs Date Time Temp Pulse Resp B/P Pulse O2 O2 Flow FiO2 Ox Delivery Rate 08/05 1845 97 Nasal 2.0L Cannula 08/05 1600 Nasal 2.0L Cannula 08/05 1350 97.9 90 20 130/70 97 Nasal 2.0L Cannula 08/05 1100 Nasal 2.0L Cannula 08/05 1059 97 Nasal 2.0L Cannula 08/05 0959 130/72 08/05 0958 130/72 08/05 0800 Nasal 2.0L Cannula 08/05 0656 98.4 74 20 110/54 94 08/05 0237 95 Nasal 2.0L Cannula 08/05 0200 98.5 75 20 114/56 93 Room Air 08/05 0145 95 Nasal 2.0L Cannula 08/05 0030 98.2 74 20 109/55 94 Room Air 08/05 0002 94 Room Air 08/05 0002 24 88 Room Air 08/05 0002 20 94 Room Air 08/048 98.1 57 28 115/65 96 Room Air Intake & Output 08/05 1600 08/05 0800 08/05 0000 08/04 1600 08/04 0800 08/04 0000 Intake Total 850 121 Output Total 300 Balance 850 -179 Intake, IV 250 1 Intake, Oral 600 120 Number 0 Bowel Movements Output, Urine 300 Patient 210 lb 206 lb Weight Physical Exam: General: WD/overweight male in NAD; alert and oriented x 3 HEENT: NC/AT, PERRL, EOMI Neck: no JVD, no carotid bruit Heart: RRR w/o murmur Lungs: clear bilaterally Abdomen: soft, NT, +ve bowel sounds Extremities: 2+ leg edema Diagnostic Data EKG Results sinus rhythm with RBBB and LAFB Assessment/Plan Assessment/Plan * This patient has shortness of breath and a cough. These symptoms are likely related to a bronchitis that is probably viral in etiology. He has no JVD, crackles, pulmonary edema on chest X-ray or elevated BNP to suggest the presence of decompensated right or left heart failure. I would continue to treat for a bronchitis exacerbation of COPD. * Continue the patient's usual cardiac medications including NTG patch at 0.4mg/ hr for 12 hours daily, Lisinopril 10mg daily, metoprolol 50mg BID, Cardizem CD 120mg daily and Eliquis 5mg BID. Consult Acknowledgment - Thank you for your consult request.
[2016-08-05 22:00] VITALS: BP 112/64
[2016-08-05 22:26] VITALS: BP 112/64
--- NOTE | 2016-08-06 05:06 | PN- Housestaff ---
RIA ERICKSON MD 08/06/16 0506: Subjective Follow-up For: COPD exacerbation Subjective: Patient is doing well . He has been feeling better since yesterday. He still has persistent dry cough which is sometimes productive with white sputum. The patient remained afebrile overnight steroids. The patient has been ambulating in the hallway with no problems. Persistent pleuritic chest pain Review of Systems Constitutional: Reports: see HPI. Objective Last 24 Hrs of Vital Signs/I&O Vital Signs Date Time Temp Pulse Resp B/P Pulse O2 O2 Flow FiO2 Ox Delivery Rate 08/06 0816 94 Room Air Room Air 08/06 0705 97.8 71 20 110/64 95 Room Air 08/06 0034 97.9 87 20 128/80 08/06 0000 93 Room Air 08/05 2226 97.7 79 20 112/64 93 Nasal Cannula 08/05 2200 97.9 79 18 112/64 93 Room Air 08/05 2133 97.7 79 18 112/62 08/05 1845 97 Nasal 2.0L Cannula 08/05 1600 Nasal 2.0L Cannula 08/05 1350 97.9 90 20 130/70 97 Nasal 2.0L Cannula 08/05 1100 Nasal 2.0L Cannula 08/05 1059 97 Nasal 2.0L Cannula 08/05 0959 130/72 08/05 0958 130/72 Intake & Output 08/06 1600 08/06 0800 08/06 0000 Intake Total 480 Output Total Balance 480 Intake, Oral 480 Physical Exam General Appearance: Alert, Oriented X3, Cooperative Skin: No Rashes, No Breakdown HEENT: Atraumatic, PERRLA Neck: No JVD Lymphatic: Axillary nl, Cervical nl Cardiovascular: Normal S1, Normal S2 Lungs: decreased airway entry and b/l congestion Assessment/Plan Assessment: The patient is a 85-year-old male with a past medical history of hypertension, atrial fibrillation currently on Eliquis, COPD not on home oxygen who presented to the [facility] with worsening shortness of breath with pleuritic chest pain. Assessment 1. COPD exacerbation with not on home oxygen 2. Acute hypoxic respiratory failure with a saturation of 88% on room air at the time of admission 3. Chronic atrial fibrillation 4. History of hypertension Plan Continue with the prednisone 40 mg daily continue for 5 days and then stop Continue with azithromycin for anti-inflammatory.(5 doses) today is day 2 Continue with rate control with metoprolol 50 mg twice a day and Eliquis for atrial fibrillation Appreciate pulmonology consult Continue albuterol and ipratropium TRC and embolization Kidney with other blood pressure medications including lisinopril and Cardizem C/w with Mucinex and Robitussin DVT PPX at all time FC Problem List: 1. Hypertension 2. COPD with acute exacerbation 3. Afib Pain Ratin Pain Location: chest pain Pain Goal: Remain pain free Pain Plan: PO tylenol Tomorrow's Labs & Rationales: GILMAR Dowling MD 08/06/16 1413: Attending MD Review Statement Attending Statement Attending MD Statement: examined this patient, discuss w/resident/PA/TOOL DISPATCHER, agreed w/resident/PA/TOOL DISPATCHER, reviewed EMR data (avail), discussed with nursing, amended to note Attending Assessment/Plan: The patient continues to improve. Discussed with house staff. Agree with plan of care as outlined.
[2016-08-06 07:05] VITALS: BP 110/64
[2016-08-06] MEDS ORDERED: AZITHROMYCIN250 M1 PO ×2 (08:25→20:40)
[2016-08-06 13:29] VITALS: BP 112/80
--- NOTE | 2016-08-06 14:44 | PN- Cardiology ---
Subjective Subjective: * Patient ambulated without problem. Shortness of breath is dramatically improved although not quite back to his baseline. He continues to have a cough and complains of a sore throat. Objective Vital Signs and I&Os Vital Signs Date Time Temp Pulse Resp B/P Pulse O2 O2 Flow FiO2 Ox Delivery Rate 08/06 1329 98.7 85 18 112/80 95 Room Air 08/06 0959 86 128/68 08/06 0958 86 128/68 08/06 0958 86 128/68 08/06 0816 94 Room Air Room Air 08/06 0800 96 Room Air 08/06 0705 97.8 71 20 110/64 95 Room Air 08/06 0034 97.9 87 20 128/80 08/06 0000 93 Room Air 08/05 2226 97.7 79 20 112/64 93 Nasal Cannula 08/05 2200 97.9 79 18 112/64 93 Room Air 08/05 2133 97.7 79 18 112/62 08/05 1845 97 Nasal 2.0L Cannula 08/05 1600 Nasal 2.0L Cannula Intake & Output 08/06 1600 08/06 0800 08/06 0000 08/05 1600 08/05 0800 08/05 0000 Intake Total 720 50 480 850 121 Output Total 300 Balance 720 50 480 850 -179 Intake, IV 0 250 1 Intake, Oral 720 50 480 600 120 Number 0 0 Bowel Movements Output, Urine 300 Patient 210 lb 206 lb Weight Physical Exam: General: WD/overweight male in NAD; alert and oriented x 3 Neck: no JVD, no carotid bruit Heart: RRR w/o murmur Lungs: clear bilaterally Extremities: no leg edema Assessment/Plan Assessment/Plan * Cruz is much improved on his current drug regimen. There are no signs of decompensated congestive heart failure. Continue current management. Continue telemetry? No
--- NOTE | 2016-08-06 17:59 | PN- Pulmonary ---
Subjective HPI/Critical Care Issues: Patient is doing well . He has been feeling better since yesterday. He still has persistent dry cough which is sometimes productive with white sputum. The patient remained afebrile overnight steroids. The patient has been ambulating in the hallway with no problems. Persistent pleuritic chest pain Review of Systems Constitutional: Reports: see HPI. Objective Current Medications: Current Medications Sig/Nestor Start time Last Medication Dose Route Stop Time Status Admin Acetaminophen 650 MG Q6P PRN 08/05 0130 AC 08/05 PO 1412 Albuterol Sulfate 3 ML BID 08/05 2200 AC 08/06 INH 0808 Albuterol Sulfate 3 ML Q6 PRN 08/05 0130 AC 08/05 INH 0223 Apixaban 5 MG BID 08/05 1000 AC 08/06 PO 0958 Azithromycin 250 MG DAILY 08/06 1000 AC 08/06 PO 08/09 1001 0959 Benzonatate 100 MG ONCE PRN 08/06 0000 DC PO 08/06 0200 Benzonatate 100 MG ONCE ONE 08/05 1845 DC 08/05 PO 08/05 1846 1929 Diltiazem HCl 120 MG DAILY 08/05 1000 AC 08/06 PO 0958 Guaifenesin 600 MG Q12 08/05 1000 DC 08/05 PO 2133 Guaifenesin/Codeine 10 ML Q6P PRN 08/06 0845 AC Phosphate PO Ipratropium [place] 2.5 ML BID 08/05 2200 AC 08/06 INH 0808 Ipratropium [place] 2.5 ML Q4 HRS NEEDED PRN 08/05 0130 AC 08/05 INH 0223 Lisinopril 10 MG DAILY 08/05 2300 AC 08/06 PO 0959 Metoprolol Tartrate 50 MG BID 08/05 1000 AC 08/06 PO 0958 Multivitamins 1 TAB DAILY 08/05 1000 AC 08/06 Therapeutic PO 0959 Nitroglycerin 0.4 MG DAILY 08/05 2300 AC 08/06 TOP 0957 Omeprazole 40 MG DAILY AC 08/06 0700 AC 08/06 PO 0651 Patient Medication 1 ED .STK-MED ONE 08/06 1420 CO Teaching ED 08/06 1421 Polyethylene Glycol 17 GM DAILY 08/06 1648 AC 08/06 PO 1727 Polyethylene Glycol 17 GM DAILY PRN 08/05 0145 AC PO Prednisone 40 MG DAILY 08/06 1000 AC 08/06 PO 0958 Tamsulosin HCl 0.8 MG DAILY 08/05 1000 AC 08/06 PO 0958 Vital Signs & I&O Last 24 Hrs of Vitals and I&O: Vital Signs Date Time Temp Pulse Resp B/P Pulse O2 O2 Flow FiO2 Ox Delivery Rate 08/06 1329 98.7 85 18 112/80 95 Room Air 08/06 0959 86 128/68 08/06 0958 86 128/68 08/06 0958 86 128/68 08/06 0816 94 Room Air Room Air 08/06 0800 96 Room Air 08/06 0705 97.8 71 20 110/64 95 Room Air 08/06 0034 97.9 87 20 128/80 08/06 0000 93 Room Air 08/05 2226 97.7 79 20 112/64 93 Nasal Cannula 08/05 2200 97.9 79 18 112/64 93 Room Air 08/05 2133 97.7 79 18 112/62 08/05 1845 97 Nasal 2.0L Cannula Intake & Output 08/06 1600 08/06 0800 08/06 0000 Intake Total 720 50 480 Output Total Balance 720 50 480 Intake, IV 0 Intake, Oral 720 50 480 Number 0 Bowel Movements Impression/Plan Impression/Plan Impression/Plan: Physical Exam General Appearance Alert, Oriented X3, Cooperative, No Acute Distress Skin No Rashes, No Breakdown HEENT Atraumatic, PERRLA, EOMI Neck Supple, No JVD, No thryomegaly Cardiovascular Normal S1, Normal S2, irregular Lungs decrease air entry bilaterally Abdomen Soft, No Tenderness Neurological Normal Speech Extremities bilateral pitting edema Vascular Normal Pulses, Pulses Symmetrical SIGNIFICANT DATA Chest x-ray showed bilateral peribronchial thickening suggestive of small airway disease Previous CT scan done in 2015 showed stable lung nodules for more than 2 year duration He has a large hiatal hernia 's previous echocardiogram done in 2015 showed ejection fraction which is reduced to 45% This blood work as noted white count was elevated at 10 hemoglobin 13 ever 6% bands upon admission IMPRESSION This is a gentleman with coronary artery disease with previous CABG and stent, hypertension, hyperlipidemia, atrial fibrillation on on eloquis, previous esophagitis, GERD, significant hiatal hernia, previous prostate cancer therapy, obstructive and restrictive lung disease, bilateral small lung nodules, cor pulmonale, now comes in with * Improving Significant cough wheezing shortness of breath and gentleman with history of obstructive restrictive lung disease with high white count suggestive of bacterial bronchitis in a COPD exacerbation * Chest discomfort on and off with exertional dyspnea in a gentleman with reduced ejection fraction. Cardio onboard * Significant hiatal hernia with GERD causing some of his symptoms * Morbid obesity with signs and symptoms suggestive of obstructive sleep apnea REC Continue current medications prednisone 40 qd for five days Omeprazole 40 mg once a day Keep the head of bed elevated Stable ok to dc in am
--- NOTE | 2016-08-06 20:39 | Patient Discharge Instructions ---
Discharge Instructions General Discharge Information You were seen/treated for: COPD exacerbation,Shortness of breath Special Instructions: PLease F/u with PCP in1 week of discharge Acute Coronary Syndrome Inclusion Criteria At DC or during hospital stay patient has or had the following: ACS DIAGNOSIS No Discharge Core Measures Meds if any: Prescribed or Continued at Discharge Meds if any: NOT Prescribed or Continued at Discharge Congestive Heart Failure Inclusion Criteria At DC or during hospital stay patient has or had the following: CHF DIAGNOSIS No Discharge Core Measures Meds if any: Prescribed or Continued at Discharge Meds if any: NOT Prescribed or Continued at Discharge Cerebrovascular accident Inclusion Criteria At DC or during hospital stay patient has or had the following: CVA/TIA Diagnosis No Discharge Core Measures Meds if any: Prescribed or Continued at Discharge Meds if any: NOT Prescribed or Continued at Discharge Venous thromboembolism Inclusion Criteria VTE Diagnosis No VTE Type NONE VTE Confirmed by (Test) NONE Discharge Core Measures - Per Current guidelines, there needs to be overlap - treatment for the first 5 days of Warfarin therapy. - If discharged on Warfarin prior to 5 days of - overlap therapy, the patient will need to be - assessed for post discharge needs including - *Post discharge parental anticoagulation - *Warfarin and/or parental anticoagulation education - *Follow up date to check INR post discharge At least 5 days overlap therapy as Inpatient No Meds if any: Prescribed or Continued at Discharge Note: Overlap Therapy is Warfarin and Anticoagulant Meds if any: NOT Prescribed or Continued at Discharge
[2016-08-06] MEDS ORDERED: PREDNISONE20 M1 PO (20:40)
[2016-08-06] MEDS ORDERED: OMEPRAZOLE20 M2 PO (20:40)
[2016-08-07 00:02] VITALS: BP 124/50
--- NOTE | 2016-08-07 05:00 | PN- Housestaff ---
GEORGINA VAZQUEZ,RIA 08/07/16 0500: Subjective Follow-up For: COPD EXACERBATION Complaints: no complaints Subjective: He is doing well and has been of oxygen since yesterday.no Chest pain .Still has persistent dry cough. Review of Systems Constitutional: Reports: see HPI. Objective Last 24 Hrs of Vital Signs/I&O Vital Signs Date Time Temp Pulse Resp B/P Pulse O2 O2 Flow FiO2 Ox Delivery Rate 08/07 0642 94 Room Air 08/07 0636 97.7 72 20 120/72 95 Room Air 08/07 0033 107 95 Room Air 08/07 0002 98.0 114 18 124/50 94 Room Air 08/07 0000 95 Room Air 08/06 2114 85 112/80 08/06 1930 95 Room Air 08/06 1329 98.7 85 18 112/80 95 Room Air 08/06 0959 86 128/68 08/06 0958 86 128/68 08/06 0958 86 128/68 08/06 0816 94 Room Air Room Air 08/06 0800 96 Room Air Intake & Output 08/07 0800 08/07 0000 08/06 1600 Intake Total 360 360 720 Output Total Balance 360 360 720 Intake, Oral 360 360 720 Physical Exam General Appearance: Alert, Oriented X3 Skin: No Rashes, No Breakdown HEENT: Atraumatic, PERRLA Neck: Supple, No JVD Lymphatic: Axillary nl, Cervical nl Lungs: decreased airway entry b/l Assessment/Plan Assessment: The patient is a 85-year-old male with a past medical history of hypertension, atrial fibrillation currently on Eliquis, COPD not on home oxygen who presented to the [facility] with worsening shortness of breath with pleuritic chest pain. Assessment 1. COPD exacerbation with not on home oxygen 2. Acute hypoxic respiratory failure with a saturation of 88% on room air at the time of admission 3. Chronic atrial fibrillation 4. History of hypertension Plan Continue with the prednisone 40 mg daily continue for more 4 days and then stop Continue with azithromycin for anti-inflammatory.(5 doses) today is day 3 Continue with rate control with metoprolol 50 mg twice a day and Eliquis for atrial fibrillation Appreciate pulmonology consult Continue albuterol and ipratropium TRC and embolization Kidney with other blood pressure medications including lisinopril and Cardizem C/w with Mucinex and Robitussin DVT PPX at all time FC Patient is stable for discharge today. Problem List: 1. Hyperlipidemia 2. Hypertension 3. COPD with acute exacerbation Pain Ratin Pain Location: chest secondary to cough. Pain Goal: Remain pain free Pain Plan: tyelnol as needed Tomorrow's Labs & Rationales: none GILMAR GRIFFIN MD 08/07/16 1333: Attending MD Review Statement Attending Statement Attending MD Statement: examined this patient, discuss w/resident/PA/LEAF SORTER, agreed w/resident/PA/LEAF SORTER, discussed with family, reviewed EMR data (avail), discussed with nursing, discussed with case mgmt, amended to note Attending Assessment/Plan: The patient was seen and discussed with house staff. Agree with the plan of care as outlined.
[2016-08-07 06:36] VITALS: BP 120/72
[2016-08-07] MEDS ORDERED: PREDNISONE20 M1 PO (08:43)
[2016-08-07] MEDS ORDERED: IPRAT-ALBUT 0.5-3 ML INH (09:23)
[2016-08-07 09:34] VITALS: BP 122/68
--- NOTE | 2016-08-07 09:59 | PN- Pulmonary ---
Subjective HPI/Critical Care Issues: He is doing well and has been of oxygen since yesterday.no Chest pain .Still has persistent dry cough. Review of Systems Constitutional: Reports: see HPI. Objective Current Medications: Current Medications Sig/Nestor Start time Last Medication Dose Route Stop Time Status Admin Acetaminophen 650 MG Q6P PRN 08/05 0130 AC 08/05 PO 1412 Albuterol Sulfate 3 ML BID 08/05 2200 AC 08/07 INH 0641 Albuterol Sulfate 3 ML Q6 PRN 08/05 0130 AC 08/05 INH 0223 Apixaban 5 MG BID 08/05 1000 AC 08/07 PO 0934 Azithromycin 250 MG DAILY 08/06 1000 AC 08/07 PO 08/09 1001 0934 Diltiazem HCl 120 MG DAILY 08/05 1000 AC 08/07 PO 0933 Guaifenesin/Codeine 10 ML Q6P PRN 08/06 0845 AC Phosphate PO Ipratropium [place] 2.5 ML BID 08/05 2200 AC 08/07 INH 0641 Ipratropium [place] 2.5 ML Q4 HRS NEEDED PRN 08/05 0130 AC 08/05 INH 0223 Lisinopril 10 MG DAILY 08/05 2300 AC 08/07 PO 0934 Metoprolol Tartrate 50 MG BID 08/05 1000 AC 08/07 PO 0934 Multivitamins 1 TAB DAILY 08/05 1000 AC 08/07 Therapeutic PO 0934 Nitroglycerin 0.4 MG DAILY 08/05 2300 AC 08/07 TOP 0935 Omeprazole 40 MG DAILY AC 08/06 0700 AC 08/07 PO 0615 Patient Medication 1 ED .ST-MED ONE 08/06 1420 NV Teaching ED 08/06 1421 Polyethylene Glycol 17 GM DAILY 08/06 1648 AC 08/07 PO 0935 Polyethylene Glycol 17 GM DAILY PRN 08/05 0145 AC PO Prednisone 40 MG DAILY 08/06 1000 AC 08/07 PO 0934 Tamsulosin HCl 0.8 MG DAILY 08/05 1000 AC 08/07 PO 0934 Vital Signs & I&O Last 24 Hrs of Vitals and I&O: Vital Signs Date Time Temp Pulse Resp B/P Pulse O2 O2 Flow FiO2 Ox Delivery Rate 08/07 0934 85 122/68 08/07 0934 85 122/68 08/07 0934 85 122/68 08/07 0900 95 Room Air 08/07 0642 94 Room Air 08/07 0636 97.7 72 20 120/72 95 Room Air 08/07 0033 107 95 Room Air 08/07 0002 98.0 114 18 124/50 94 Room Air 08/07 0000 95 Room Air 08/06 2114 85 112/80 08/06 1930 95 Room Air 08/06 1329 98.7 85 18 112/80 95 Room Air 08/06 0959 86 128/68 Intake & Output 08/07 1600 08/07 0800 08/07 0000 Intake Total 360 360 Output Total Balance 360 360 Intake, Oral 360 360 Laboratory Tests 08/05 1545 Chemistry Troponin I (<0.11 ng/ml) < 0.01 Microbiology Date/Time Procedure - Status Source Growth 08/04 2244 Influenza Virus A & B Rapid Smear - COMP NASOPHARYN 08/04 2244 Blood Culture - RES BLOOD 08/04 2243 Respiratory Culture - COMP LOWER RESP 08/04 2243 Gram Stain - COMP LOWER RESP 08/04 2229 Blood Culture - RES BLOOD Impression/Plan Impression/Plan Impression/Plan: Physical Exam General Appearance Alert, Oriented X3, Cooperative, No Acute Distress Skin No Rashes, No Breakdown HEENT Atraumatic, PERRLA, EOMI Neck Supple, No JVD, No thryomegaly Cardiovascular Normal S1, Normal S2, irregular Lungs decrease air entry bilaterally Abdomen Soft, No Tenderness Neurological Normal Speech Extremities bilateral pitting edema Vascular Normal Pulses, Pulses Symmetrical SIGNIFICANT DATA Chest x-ray showed bilateral peribronchial thickening suggestive of small airway disease IMPRESSION This is a gentleman with coronary artery disease with previous CABG and stent, hypertension, hyperlipidemia, atrial fibrillation on on eloquis, previous esophagitis, GERD, significant hiatal hernia, previous prostate cancer therapy, obstructive and restrictive lung disease, bilateral small lung nodules, cor pulmonale, now comes in with * Improving Significant cough wheezing shortness of breath and gentleman with history of obstructive restrictive lung disease with high white count suggestive of bacterial bronchitis in a COPD exacerbation * Chest discomfort on and off with exertional dyspnea in a gentleman with reduced ejection fraction. Cardio onboard * Significant hiatal hernia with GERD causing some of his symptoms * Morbid obesity with signs and symptoms suggestive of obstructive sleep apnea REC Continue current medications prednisone 40 qd for five days Omeprazole 40 mg once a day Keep the head of bed elevated Change lisinopril to losartan upon dc as this could be causing his cough aswell Stable ok to dc and will follow with me in few weeks
[2016-08-07] MEDS ORDERED: COZAAR25 M1 PO (12:10)
--- NOTE | 2016-08-07 12:25 | PN- Cardiology ---
Subjective Subjective: * Al ambulated without shortness of breath. He continues to have a cough although it is a bit better that it was. Objective Vital Signs and I&Os Vital Signs Date Time Temp Pulse Resp B/P Pulse O2 O2 Flow FiO2 Ox Delivery Rate 08/07 0934 85 122/68 08/07 0934 85 122/68 08/07 0934 85 122/68 08/07 0900 95 Room Air 08/07 0642 94 Room Air 08/07 0636 97.7 72 20 120/72 95 Room Air 08/07 0033 107 95 Room Air 08/07 0002 98.0 114 18 124/50 94 Room Air 08/07 0000 95 Room Air 08/06 2114 85 112/80 08/06 1930 95 Room Air 08/06 1329 98.7 85 18 112/80 95 Room Air Intake & Output 08/07 1600 08/07 0800 08/07 0000 08/06 1600 08/06 0800 08/06 0000 Intake Total 360 360 720 50 480 Output Total Balance 360 360 720 50 480 Intake, IV 0 Intake, Oral 360 360 720 50 480 Number 0 Bowel Movements Physical Exam: General: WD/overweight male in NAD; alert and oriented x 3 Neck: no JVD, no carotid bruit Heart: RRR w/o murmur Lungs: clear bilaterally Extremities: no leg edema Assessment/Plan Assessment/Plan * Cruz is much improved. Agree with discontinuing Lisinopril in favor of Losartan 25mg daily since the patient may have an ACEI cough. Otherwise continue his current drug regimen and follow up in the office in a week. Continue telemetry? No
== END 2016-08-07 12:59 | DRG 190 ==
LOC: ENRESERVDT → ENRESERVTM → ERH 21:24 → 2NA 08-05 00:26 → ENPENDDIS 08-05 00:26 → ERHI 08-05 00:26 → 2NA 08-05 01:40
PROVIDERS: Physician Assistant; ADMIT Student in an Organized Health Care Education/Training Program
DX: J44.1 Chronic obstructive pulmonary disease with (acute) exacerbation (principal); J96.01 Acute respiratory failure with hypoxia; I27.2 Other secondary pulmonary hypertension; I11.0 Hypertensive heart disease with heart failure; I50.22 Chronic systolic (congestive) heart failure; E66.01 Morbid (severe) obesity due to excess calories; I48.2 Chronic atrial fibrillation; J20.9 Acute bronchitis, unspecified; I25.10 Atherosclerotic heart disease of native coronary artery without angina pectoris; J44.0 Chronic obstructive pulmonary disease with (acute) lower respiratory infection; K21.9 Gastro-esophageal reflux disease without esophagitis; K44.9 Diaphragmatic hernia without obstruction or gangrene; D72.825 Bandemia; Z68.36 Body mass index [BMI] 36.0-36.9, adult; G47.33 Obstructive sleep apnea (adult) (pediatric); Z79.01 Long term (current) use of anticoagulants; Z95.1 Presence of aortocoronary bypass graft; Z87.891 Personal history of nicotine dependence; Z85.46 Personal history of malignant neoplasm of prostate
CPT/HCPCS: 2NASP; 6020; 36415; 87040; 87070; 87804; 87804-59; 93005; 93010; 96365; 96375; G0378; J0456; J1650; J2920; J2930; J7060

== ENCOUNTER 2016-09-22 15:35 | Emergency (ER) | payer OTHER ==
[~2016-09-22] VITALS: Ht 165.1 cm; Wt 93.0 kg
[~2016-09-22 15:35] MED LIST changes: +AZITHROMYCIN250 M1 PO; +COZAAR25 M1 PO; +IPRAT-ALBUT 0.5-3 ML INH; +METAMUCIL660 GM PO; +ONE DAILY MULT1 EAC2 PO; +PREDNISONE20 M1 PO; +PROAIR HFA8.5 GM INH
--- NOTE | 2016-09-22 16:27 | ED GI/GU/ABDOMINAL COMPLAINT ---
History of Present Illness General Chief Complaint: Male Genitourinary Problems Stated Complaint: HEMATURIA, BURNING Source: patient, family, old records Exam Limitations: no limitations Vital Signs & Intake/Output Vital Signs & Intake/Output Vital Signs Date Time Temp Pulse Resp B/P Pulse O2 O2 Flow FiO2 Ox Delivery Rate 09/22 2024 96.5 96 18 135/64 95 Room Air 09/22 1841 97.8 107 16 102/58 98 Room Air 09/22 1838 Room Air 09/22 1547 97.2 87 18 97/63 95 Room Air Allergies Coded Allergies: NO KNOWN ALLERGIES (10/04/13) Reconcile Medications Albuterol Sulfate (Proair Hfa) 90 MCG HFA.AER.AD 2 PUF INH Q4-6 PRN PRN COPD (Reported) Apixaban (Eliquis) 5 MG TABLET 1 TAB PO BID BLOOD THINNER (Reported) Diltiazem HCl (Diltiazem 24HR ER) 120 MG CAP.ER.24H 1 CAP PO DAILY HEART/BP ( Reported) Ipratropium/Albuterol Sulfate (Iprat-Albut 0.5-3(2.5) MG/3 Ml) 0.5 MG-3 MG (2.5 MG BASE)/3 ML AMPUL.NEB 1 VIAL INH DAILY PRN COPD Losartan Potassium (Cozaar) 25 MG TABLET 1 TAB PO DAILY BP Metoprolol Tartrate 50 MG TABLET 1 TAB PO BID HEART/BP (Reported) Multivitamin (One Daily Multivitamin) 1 EACH TABLET 1 TAB PO DAILY SUPPLEMENT (Reported) Nitroglycerin (Nitroglycerin Patch) 0.4 MG/HOUR PATCH.TD24 1 PATCH TOP DAILY HEART (Reported) Omeprazole 40 MG CAPSULE.DR 1 CAP PO DAILY GI (Reported) Psyllium Husk (Metamucil) 3.4 GRAM/5.4 GRAM POWDER 1 Scoopful PO QPM PRN CONSTIPATION (Reported) Tamsulosin HCl (Flomax) 0.4 MG CAP.ER.24H 2 CAP PO DAILY PROSTATE (Reported) Triage Note: PT STATES HE IS URINATING BLOOD STATES THIS HAPPEND ONCE. PT HAD A URINARY CATH ON FRIDAY AT [facility] AND A CAO WAS PLACED. PT STATES J[facility] HAD A CARDIAC CATH DONE LAST WEEK. Triage Nurses Notes Reviewed? yes HPI: Patient is an 85-year-old male presents complaining of hematuria onset this afternoon. Patient had a cardiac catheterization on Friday of last week, had a Cao catheter placed at that time. Patient reports this afternoon when he urinated he had a large amount of blood. Mild suprapubic pain. Mild lightheadedness. Denies difficulty initiating urine stream. Denies fevers, chills. (REBECA ANDERSON) Past History Travel History Traveled to [place] past 21 day No Medical History Any Pertinent Medical History? 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 Other Medical Hx: appendectomy, tonsillectomy, back surgery for herniated disc, right inguinal hernia repiar, esophageal reflux, osteoarthritis adenoma of the prostate, coronary artery disease s/p CABG, COPD, hypertension History of MRSA: No History of VRE: No History of CDIFF: No Influenza Vaccine: 04/16/16 Surgical History Surgical History: STENTS CARDIAC BYPASS Psychosocial History Who do you live with Spouse Services at Home None What is your primary language Dutch Tobacco Use: Quit >30 days ago ETOH Use: denies use Illicit Drug Use: denies illicit drug use Family History Family History, If Any: FATHER FH: diabetes mellitus FATHER Relation not specified for: FH: hypertension Hx Contributory? No (REBECA ANDERSON) Review of Systems Review of Systems Constitutional: Denies: chills, fever. EENTM: Reports: no symptoms. Respiratory: Reports: short of breath (chronic, unchanged). Cardiovascular: Denies: chest pain. GI: Denies: nausea, bloody stool, vomiting. Genitourinary: Reports: see HPI. Musculoskeletal: Reports: no symptoms. Skin: Reports: no symptoms. Neurological/Psychological: Reports: no symptoms. Hematologic/Endocrine: Reports: see HPI. Immunologic/Allergic: Reports: no symptoms. (REBECA ANDERSON) Physical Exam Physical Exam General Appearance: well developed/nourished, alert, awake Head: atraumatic, normal appearance Eyes: Bilateral: normal appearance. Ears, Nose, Throat, Mouth: hearing grossly normal, moist mucous membrane Neck: normal inspection, supple, full range of motion Respiratory: normal breath sounds, chest non-tender, no respiratory distress, lungs clear Cardiovascular: regular rate/rhythm Gastrointestinal: soft, non-tender Back: normal inspection, normal range of motion Extremities: normal range of motion Neurologic/Psych: no motor/sensory deficits, awake, alert, oriented x 3 Skin: intact, normal color, warm/dry Core Measures ACS in differential dx? No Severe Sepsis Present: No Septic Shock Present: No (ALFONSO LEON,REBECA) Progress Differential Diagnosis: ureterolithiasis, urinary retention, UTI/pyelo, hematuria from recent cao catheter, bladder malignancy Plan of Care: Orders Procedure Date/time Status Add-on Test (ER Only) 09/22 1642 Active Continuous Bladder Irrigation 09/22 1642 Active CBC WITHOUT DIFFERENTIAL 09/22 1642 Complete BASIC METABOLIC PANEL 09/22 1642 Complete TYPE & SCREEN (NOT X-MATCH) 09/22 1642 Complete CULTURE,URINE 09/23 1555 Active URINALYSIS 09/22 155 Complete Laboratory Tests 09/22/16 1705: Anion Gap 12, Estimated GFR > 60, BUN/Creatinine Ratio 20.9, Glucose 139 H, Calcium 8.9, CBC w Diff NO MAN DIFF REQ, RBC 4.40 L, MCV 83.1, MCH 27.3, RDW 17.0 H, MPV 7.8, Gran % 71.9, Lymphocytes % 18.3 L, Monocytes % 7.1, Eosinophils % 2.4, Basophils % 0.3, Absolute Granulocytes 5.8, Absolute Lymphocytes 1.5, Absolute Monocytes 0.6, Absolute Eosinophils 0.2, Absolute Basophils 0, PUBS MCHC 32.8 L 09/22/16 1555: Urinalysis LIGHT H, Urine Color BLDY H, Urine Clarity TURBD H, Urine pH 6.0, Ur Specific [place] >= 1.030, Urine Protein 100 H, Urine Ketones TRACE H, Urine Nitrite NEG, Urine Bilirubin NEG@ICTO, Urine Urobilinogen 0.2, Ur Leukocyte Esterase NEG, Ur Microscopic SEDIMENT EXAMINED, Urine RBC >75 H, Urine WBC 3-5 H, Ur Epithelial Cells FEW, Urine Bacteria MANY H, Urine Mucus FEW, Urine Hemoglobin LARGE H, Urine Glucose NEG Microbiology 09/22 1556 URINE ROUT: Urine Culture - RECD 09/22/2016 7:07:47 PM: Color of urine is improving. Patient reports some discomfort with continuous bladder irrigation, is nontoxic appearing at this time. Results of labs discussed with the patient and his family. Discussed with and seen by Dr. Painter. Patient reevaluated multiple times. Urine clearing with continuous bladder irrigation. No blood clots passed. Results of labs discussed with patient and his family. Patient appears stable for discharge. Recommended follow-up with his urologist and to return to the emergency department if worsening. (REBECA ANDERSON) Initial ED EKG: none (REBECA ANDERSON) Departure Departure Disposition: HOME OR SELF CARE Condition: Stable Clinical Impression Primary Impression: Hematuria Referrals: FALLON VAZQUEZ,MARLA Mosher (PCP/Family) LAURA CABRAL MD Additional Instructions: Follow-up with your urologist this week for further evaluation. Call in the morning for appointment. Make sure that you are drinking plenty of fluids. Return to emergency department if unable to urinate, increasing abdominal pain, fevers, or worsening of symptoms. Departure Forms: Customer Survey General Discharge Information (REBECA ANDERSON) PA/PROPERTY ADMINISTRATOR Co-Sign Statement Statement: ED Attending supervision documentation- [X] I saw and evaluated the patient. I have also reviewed all the pertinent lab results and diagnostic results. I agree with the findings and the plan of care as documented in the PA's/PROPERTY ADMINISTRATOR's documentation. [X] I have reviewed the ED Record and agree with the PA's/PROPERTY ADMINISTRATOR's documentation. [] Additions or exceptions (if any) to the PAs/PROPERTY ADMINISTRATOR's note and plan are summarized below: [] (THUAN VAZQUEZ,ANALI)
[2016-09-22 17:20] LABS: ABSOLUTE BASOPHIL COUNT 0 /CUMM (0.0-0.2); ABSOLUTE EOSINOPHIL COUNT 0.2 /CUMM (0.0-0.7); ABSOLUTE GRANULOCYTE CT 5.8 /CUMM (1.4-6.5); ABSOLUTE LYMPH COUNT 1.5 /CUMM (1.2-3.4); ABSOLUTE MONOCYTE COUNT 0.6 /CUMM (0.10-0.60); BASOPHIL % 0.3 % (0.0-2.0); EOSINOPHIL % 2.4 % (0-5); GRANULOCYTE % 71.9 % (42.2-75.2); HEMATOCRIT 36.5 % (42-52); MEAN CORPUSCULAR HGB 27.3 PG (27.0-31.0); MEAN CORPUSCULAR HGB CONC 32.8 G/DL (33.0-37.0); MEAN CORPUSCULAR VOLUME 83.1 FL (80.0-94.0); MEAN PLATELET VOLUME 7.8 FL (7.4-10.4); PLATELET COUNT 362 /CUMM (130-400); WHITE BLOOD CELL COUNT 8.1 /CUMM (4.8-10.8)
[2016-09-22] MEDS ORDERED: ELIQUIS5 M1 PO (18:46)
[2016-09-22] MEDS ORDERED: DILTIAZEM 24HR120 MG PO (18:46)
[2016-09-22] MEDS ORDERED: OMEPRAZOLE40 M1 PO (18:47)
[2016-09-22] MEDS ORDERED: METOPROLOL TART50 M1 PO (18:47)
[2016-09-22] MEDS ORDERED: NITROGLYCERIN1 EACH TOP (18:47)
[2016-09-22 20:25] VITALS: BP 135/64
== END 2016-09-22 20:28 ==
LOC: ERH 15:35
PROVIDERS: Physician Assistant
DX: R31.9 Hematuria, unspecified (principal)
CPT/HCPCS: 81001; 87086

== ENCOUNTER 2016-12-03 21:51 | Emergency (ER) | payer OTHER ==
[~2016-12-03 21:51] MED LIST changes: +DILTIAZEM 24HR120 MG PO; +ELIQUIS5 M1 PO; +METOPROLOL TART50 M1 PO; +NITROGLYCERIN1 EACH TOP; +OMEPRAZOLE40 M1 PO
[2016-12-03] MEDS ORDERED: FUROSEMIDE20 M1 PO (22:22)
[2016-12-03] MEDS ORDERED: POTASSIUM CHLO10 ME4 PO (22:22)
--- NOTE | 2016-12-03 22:22 | ED GI/GU/ABDOMINAL COMPLAINT ---
History of Present Illness General Chief Complaint: Male Genitourinary Problems Stated Complaint: ?BLOOD IN URINE Source: patient, family, old records Exam Limitations: no limitations Vital Signs & Intake/Output Vital Signs & Intake/Output Vital Signs Date Time Temp Pulse Resp B/P B/P Pulse O2 O2 Flow FiO2 Mean Ox Delivery Rate 12/04 0119 97.4 72 16 130/81 99 Room Air 12/03 2200 97.4 88 16 131/86 97 Room Air ED Intake and Output 12/04 0000 12/03 1200 Intake Total Output Total Balance Patient 200 lb Weight Weight Estimated Measurement Method Allergies Coded Allergies: NO KNOWN ALLERGIES (10/04/13) Reconcile Medications Albuterol Sulfate (Proair Hfa) 90 MCG HFA.AER.AD 2 PUF INH Q4-6 PRN PRN COPD (Reported) Apixaban (Eliquis) 5 MG TABLET 1 TAB PO BID BLOOD THINNER (Reported) Ciprofloxacin HCl (Cipro) 500 MG TABLET 1 TAB PO BID UTI Diltiazem HCl (Diltiazem 24HR ER) 120 MG CAP.ER.24H 1 CAP PO DAILY HEART/BP ( Reported) Furosemide 20 MG TABLET 1 TAB PO DAILY DIURETIC (Reported) Ipratropium/Albuterol Sulfate (Iprat-Albut 0.5-3(2.5) MG/3 Ml) 0.5 MG-3 MG (2.5 MG BASE)/3 ML AMPUL.NEB 1 VIAL INH DAILY PRN COPD Losartan Potassium (Cozaar) 25 MG TABLET 1 TAB PO DAILY BP Metoprolol Tartrate 50 MG TABLET 1.5 TAB PO BID HEART/BP (Reported) Multivitamin (One Daily Multivitamin) 1 EACH TABLET 1 TAB PO DAILY SUPPLEMENT (Reported) Nitroglycerin (Nitroglycerin Patch) 0.4 MG/HOUR PATCH.TD24 1 PATCH TOP DAILY HEART (Reported) Omeprazole 40 MG CAPSULE.DR 1 CAP PO DAILY GI (Reported) Potassium Chloride 10 MEQ TABLET.ER 1 TAB PO DAILY SUPPLEMENT (Reported) Psyllium Husk (Metamucil) 3.4 GRAM/5.4 GRAM POWDER 1 Scoopful PO QPM CONSTIPATION (Reported) Tamsulosin HCl (Flomax) 0.4 MG CAP.ER.24H 2 CAP PO QAM PROSTATE (Reported) Tobramycin/Dexamethasone (Tobramycin-Dexameth Ophth Susp) 0.3 %-0.1 % DROPS.SUSP 1 GTT OPH 4 TIMES/DAY BOTH EYES (Reported) Umeclidinium Brm/Vilanterol Tr (Anoro Ellipta 62.5-25 Mcg INH) 62.5 MCG-25 MCG/ ACTUATION BLST.W.DEV 1 PUFF INH PRN RESPIRATORY (Reported) Triage Note: TRIAGE: PT TO ED C/O BLOOD TO URINE SINCE LAST NIGHT, ON ELOQUIS. REPORTS BURNING AND PAIN WITH URINATION. GIVEN URINE CUP AND ENCOURAGED TO PROVIDE SAMPLE. DENIES CP/SOB OR N/V/D. AFEBRILE Triage Nurses Notes Reviewed? yes Onset: Abrupt Duration: hour(s): (2-3) Timing: single episode today Quality/Severity: burning (during urination) Severity Numbers: 7 Location: suprapubic, urethral Radiation: no radiation Activities at Onset: urinating Prior Abdominal Problems: similar symptoms Past Sexual History: Unobtainable at this time No Modifying Factors: none Modifying Factors: Worsens With: vomiting. Associated Symptoms: abdominal pain (suprapubic), dysuria, polyuria, urinary frequency HPI: 86-year-old male with a history of coronary artery disease on elequis presents complaining of blood in the urine, dysuria, frequency, urgency, and suprapubic abdominal pain for the past day. Patient reports that he noticed large amount of blood clots in his urine earlier today. He should also reports associated frequency, urgency, and dysuria. He denies any fevers or back pain. Chest pain , shortness of breath, nausea, vomiting or difficulty urinating. He denies a history of kidney stones. (KAUSHIK VALENZUELA PA-C) Past History Travel History Traveled to [place] past 21 day No Medical History Any Pertinent Medical History? 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 Other Medical Hx: appendectomy, tonsillectomy, back surgery for herniated disc, right inguinal hernia repiar, esophageal reflux, osteoarthritis adenoma of the prostate, coronary artery disease s/p CABG, COPD, hypertension History of MRSA: No History of VRE: No History of CDIFF: No Surgical History Surgical History: STENTS CARDIAC BYPASS Psychosocial History Who do you live with Spouse Services at Home None What is your primary language Swiss Tobacco Use: Quit >30 days ago ETOH Use: occasional use Illicit Drug Use: denies illicit drug use Family History Family History, If Any: FATHER FH: diabetes mellitus FATHER Relation not specified for: FH: hypertension Hx Contributory? Yes (KAUSHIK VALENZUELA PA-C) Review of Systems Review of Systems Constitutional: Reports: no symptoms. EENTM: Reports: no symptoms. Respiratory: Reports: no symptoms. Cardiovascular: Reports: no symptoms. GI: Reports: no symptoms. Genitourinary: Reports: see HPI, dysuria, frequency, hematuria, urgency. Musculoskeletal: Reports: no symptoms. Skin: Reports: no symptoms. Neurological/Psychological: Reports: no symptoms. Hematologic/Endocrine: Reports: no symptoms. Immunologic/Allergic: Reports: no symptoms. All Other Systems: Reviewed and Negative (KAUSHIK VALENZUELA PA-C) Physical Exam Physical Exam General Appearance: well developed/nourished, no apparent distress, alert, awake , comfortable Head: atraumatic, normal appearance Eyes: Bilateral: normal appearance, PERRL, EOMI, normal inspection. Ears, Nose, Throat, Mouth: hearing grossly normal, moist mucous membrane Neck: normal inspection, supple, full range of motion Respiratory: normal breath sounds, chest non-tender, no respiratory distress, lungs clear Cardiovascular: regular rate/rhythm, normal peripheral pulses Peripheral Pulses: 2+ dorsalis pedis (R), 2+ dorsalis pedis (L) Gastrointestinal: normal bowel sounds, soft, non-tender, no organomegaly Male Genitals: normal genitalia Back: normal inspection, normal range of motion, no vertebral tenderness Extremities: normal range of motion Neurologic/Psych: no motor/sensory deficits, awake, alert, oriented x 3, normal gait, normal mood/affect Skin: intact, normal color, warm/dry Core Measures ACS in differential dx? No Severe Sepsis Present: No Septic Shock Present: No (KAUSHIK VALENZUELA PA-C) Progress Differential Diagnosis: appendicitis, biliary colic, prostatitis, pyelonephritis , ureterolithiasis, urinary retention, urethritis, UTI/pyelo Plan of Care: Orders Procedure Date/time Status CULTURE,URINE 12/04 2255 Active PARTIAL THROMBOPLASTIN TIME 12/04 2255 Complete PROTHROMBIN TIME 12/04 2255 Complete COMPREHENSIVE METABOLIC PANEL 12/04 2255 Complete CBC WITHOUT DIFFERENTIAL 12/04 2255 Complete URINALYSIS 12/03 2202 Complete Laboratory Tests 12/03/162299: Anion Gap 11, Estimated GFR > 60, BUN/Creatinine Ratio 20.0, Glucose 93, Calcium 9.1, Total Bilirubin 0.8, AST 22, ALT 28, Alkaline Phosphatase 85, Total Protein 7.2, Albumin 4.2, Globulin 3.0, Albumin/Globulin Ratio 1.4, PT 15.1 H, INR 1.44 H, APTT 36, CBC w Diff NO MAN DIFF REQ, RBC 4.88, MCV 80.3, MCH 26.4 L, RDW 15.8 H, MPV 7.9, Gran % 78.6 H, Lymphocytes % 13.7 L, Monocytes % 6.7, Eosinophils % 0.8, Basophils % 0.2, Absolute Granulocytes 7.5 H, Absolute Lymphocytes 1.3, Absolute Monocytes 0.6, Absolute Eosinophils 0.1, Absolute Basophils 0, PUBS MCHC 32.9 L 12/03/162209: Urine Color BLDY H, Urine Clarity TURBD H, Urine pH 6.5, Ur Specific [place] 1.015, Urine Protein >=300 H, Urine Ketones 15 H, Urine Nitrite POS H, Urine Bilirubin NEG@ICTO, Urine Urobilinogen >=8.0 H, Ur Leukocyte Esterase LARGE H, Ur Microscopic SEDIMENT EXAMINED, Urine RBC PACKD H, Urine WBC 15-25 H, Urine Hemoglobin LARGE H, Urine Glucose NEG Microbiology 12/03 2209 URINE ROUT: Urine Culture - RECD Urine is showing signs of infection but due to patient's age and past medical history he will need a workup to rule out other causes. Will have a noncontrast CT scan of the abdomen and pelvis along with basic blood work. We'll follow up on results. 1:[address] scan of the abdomen and pelvis showed an 8 mm stone in the right ureter with mild hydronephrosis. Patient is currently afebrile and nontoxic appearing. Patient be discharged home on Cipro 500 mg twice a day for one week. He'll be given a urology referral. He already takes Flomax once daily. Advised him to increase fluids and monitor symptoms. Return with fever or worsening pain unable to urinate or any other concerns. Reviewed all results with patient and he is in agreement with the plan. Discussed case with Dr. Monroy and he agrees the plan. (BIANCA ALLISON,KAUSHIK) Initial ED EKG: none Comments: PATIENT: SHEILA LAURA PRESENT AGE: 86 PATIENT ACCOUNT NO: [id number] : 29 LOCATION: ER ORDERING PHYSICIAN: KAUSHIK VALENZUELA PA-C SERVICE DATE: 12/03/16 EXAM TYPE: CAT - CT ABD & PELVIS W/O IV CONTRAS EXAMINATION: CT ABDOMEN AND PELVIS WITHOUT CONTRAST CLINICAL INFORMATION: Hematuria COMPARISON: None TECHNIQUE: Multidetector volumetric imaging was performed from the superior aspect of the liver through the pubic symphysis. Sagittal and coronal reformatted images were obtained on the technologist's workstation. DLP: 798.64 mGy-cm FINDINGS: LUNG BASES: There is a 5 mm right middle lobe nodule on image /91, unchanged from 08/09/2014 and therefore most consistent with a benign etiology. LIVER, GALLBLADDER, AND BILIARY TREE: The liver is normal in size, shape, and attenuation. No focal hepatic lesion or biliary ductal dilatation is present. The gallbladder is unremarkable with no evidence of radiopaque gallstones, gallbladder wall thickening, or obvious pericholecystic inflammatory changes. PANCREAS: Partial fatty atrophy is noted. SPLEEN: Unremarkable. ADRENAL GLANDS: Unremarkable. KIDNEYS AND URETERS: There is a calculus in the mid right ureter measuring 8 mm in length, with moderate hydronephrosis. No left hydronephrosis. No additional calculi are seen in the bilateral kidneys. There is mild nonspecific bilateral perinephric stranding. BLADDER: Unremarkable. GASTROINTESTINAL TRACT: A small hiatal hernia is noted. Colonic diverticulosis is noted. The small and large bowel are otherwise unremarkable without evidence of obstruction or pericolonic inflammatory change. ABDOMINAL WALL: A fat-containing left inguinal hernia is noted. LYMPH NODES: Normal. VASCULAR: There is atherosclerotic calcification along the aorta and iliac arteries. There is aneurysmal dilation of the infrarenal aorta to 5.0 cm in diameter. PELVIC VISCERA: Unremarkable. OSSEOUS STRUCTURES: Degenerative changes are noted in the spine. IMPRESSION: 1. Mid right ureteral calculus measuring 8 mm with moderate hydronephrosis. 2. Infrarenal abdominal aortic aneurysm measuring 5.0 cm in diameter. 3. Small hiatal hernia. (KAUSHIK VALENZUELA PA-C) Departure Departure Disposition: HOME OR SELF CARE Condition: Stable Clinical Impression Primary Impression: Kidney stone on right side Secondary Impressions: UTI (urinary tract infection) Qualifiers: Urinary tract infection type: site unspecified Hematuria presence: with hematuria Qualified Codes: N39.0 - Urinary tract infection, site not specified; R31.9 - Hematuria, unspecified Referrals: FALLON VAZQUEZ,MARLA Mosher (PCP/Family) LAURA CABRAL MD Additional Instructions: Take Cipro as directed for the full course. Continue Flomax and drink plenty of fluids. Make a follow-up appointment with urologist tomorrow. Monitor symptoms. Return with worsening pain, fever, unable to urinate, or any other concerns. Please go over all results of today's visit with your primary care doctor. Contact your primary care doctor to let them know you were here in the emergency room. There may be nonspecific findings which may not be related to your visit today here in the emergency room but may require further evaluation and chronic monitoring by your primary care doctor. If you had a laceration today the chance of foreign body always remains. You should follow-up with your primary care doctor for recheck in 3-5 days for a wound check. If you had an x-ray done there is a chance that a fracture could have been missed on initial read and you should follow-up with your primary care doctor for repeat x-rays if symptoms persist. If your blood pressure was elevated here in the emergency room please have rechecked by her primary care doctor within the next 48 hours by your primary care doctor. If you were prescribed a narcotic here in the emergency room or any type of controlled substances you're not allowed to drive while taking this medication or operate any type of heavy machinery. Narcotics can make you feel lightheaded dizziness nausea and can cause constipation. You may need to pharmacy picking tech a stool softener. Thank you for choosing [facility] emergency room. Please return to the emergency room immediately if you have any other concerns worsening of symptoms. Departure Forms: Customer Survey General Discharge Information Prescriptions: Current Visit Scripts Ciprofloxacin HCl (Cipro) 1 TAB PO BID #14 TAB (KAUSHIK VALENZUELA PA-C) PA/INSULATOR CUTTER AND FORMER Co-Sign Statement Statement: ED Attending supervision documentation- [X] I saw and evaluated the patient. I have also reviewed all the pertinent lab results and diagnostic results. I agree with the findings and the plan of care as documented in the PA's/INSULATOR CUTTER AND FORMER's documentation. [X] I have reviewed the ED Record and agree with the PA's/INSULATOR CUTTER AND FORMER's documentation. [] Additions or exceptions (if any) to the PAs/INSULATOR CUTTER AND FORMER's note and plan are summarized below: [] (YOON VAZQUEZ,RIAZ Escalante)
[2016-12-03] MEDS ORDERED: TOBRAMYCIN-DEXAM5 ML OPH (22:23)
[2016-12-03] MEDS ORDERED: ANORO ELLIPTA1 EACH INH (22:34)
[2016-12-03 23:17] LABS: ABSOLUTE BASOPHIL COUNT 0 /CUMM (0.0-0.2); ABSOLUTE EOSINOPHIL COUNT 0.1 /CUMM (0.0-0.7); ABSOLUTE GRANULOCYTE CT 7.5 /CUMM (1.4-6.5); ABSOLUTE LYMPH COUNT 1.3 /CUMM (1.2-3.4); ABSOLUTE MONOCYTE COUNT 0.6 /CUMM (0.10-0.60); BASOPHIL % 0.2 % (0.0-2.0); EOSINOPHIL % 0.8 % (0-5); GRANULOCYTE % 78.6 % (42.2-75.2); HEMATOCRIT 39.2 % (42-52); MEAN CORPUSCULAR HGB 26.4 PG (27.0-31.0); MEAN CORPUSCULAR HGB CONC 32.9 G/DL (33.0-37.0); MEAN CORPUSCULAR VOLUME 80.3 FL (80.0-94.0); MEAN PLATELET VOLUME 7.9 FL (7.4-10.4); PLATELET COUNT 313 /CUMM (130-400); RBC DISTRIBUTION WIDTH 15.8 % (11.5-14.5); RED BLOOD CELL CT 4.88 /CUMM (4.70-6.10); WHITE BLOOD CELL COUNT 9.5 /CUMM (4.8-10.8)
[2016-12-03 23:22] LABS: PT 15.1 SEC (9.4-12.5); PTT 36 SEC (25-37)
--- NOTE | 2016-12-04 00:25 | CT SCAN REPORT ---
EXAMINATION: CT ABDOMEN AND PELVIS WITHOUT CONTRAST CLINICAL INFORMATION: Hematuria COMPARISON: None TECHNIQUE: Multidetector volumetric imaging was performed from the superior aspect of the liver through the pubic symphysis. Sagittal and coronal reformatted images were obtained on the technologist's workstation. DLP: 798.64 mGy-cm FINDINGS: LUNG BASES: There is a 5 mm right middle lobe nodule on image 5/91, unchanged from 08/09/2014 and therefore most consistent with a benign etiology. LIVER, GALLBLADDER, AND BILIARY TREE: The liver is normal in size, shape, and attenuation. No focal hepatic lesion or biliary ductal dilatation is present. The gallbladder is unremarkable with no evidence of radiopaque gallstones, gallbladder wall thickening, or obvious pericholecystic inflammatory changes. PANCREAS: Partial fatty atrophy is noted. SPLEEN: Unremarkable. ADRENAL GLANDS: Unremarkable. KIDNEYS AND URETERS: There is a calculus in the mid right ureter measuring 8 mm in length, with moderate hydronephrosis. No left hydronephrosis. No additional calculi are seen in the bilateral kidneys. There is mild nonspecific bilateral perinephric stranding. BLADDER: Unremarkable. GASTROINTESTINAL TRACT: A small hiatal hernia is noted. Colonic diverticulosis is noted. The small and large bowel are otherwise unremarkable without evidence of obstruction or pericolonic inflammatory change. ABDOMINAL WALL: A fat-containing left inguinal hernia is noted. LYMPH NODES: Normal. VASCULAR: There is atherosclerotic calcification along the aorta and iliac arteries. There is aneurysmal dilation of the infrarenal aorta to 5.0 cm in diameter. PELVIC VISCERA: Unremarkable. OSSEOUS STRUCTURES: Degenerative changes are noted in the spine. IMPRESSION: 1. Mid right ureteral calculus measuring 8 mm with moderate hydronephrosis. 2. Infrarenal abdominal aortic aneurysm measuring 5.0 cm in diameter. 3. Small hiatal hernia.
[2016-12-04] MEDS ORDERED: CIPRO500 M1 PO (01:16)
[2016-12-04 01:19] VITALS: BP 130/81
[2016-12-06] MEDS ORDERED: LOPRESSOR50 M1 PO (10:53)
== END 2016-12-04 01:22 ==
LOC: ERH 21:51
PROVIDERS: Physician Assistant Medical
DX: N20.0 Calculus of kidney (principal); N39.0 Urinary tract infection, site not specified
CPT/HCPCS: 74176; 81001; 87086

== ENCOUNTER → 2016-12-10 | Day surgery (SDC) | payer OTHER ==
[~2016-12-10] MED LIST changes: +ANORO ELLIPTA1 EACH INH; +CIPRO500 M1 PO; +FUROSEMIDE20 M1 PO; +LOPRESSOR50 M1 PO; +PERCOCET 5-3251 EACH PO; +POTASSIUM CHLO10 ME4 PO; +TOBRAMYCIN-DEXAM5 ML OPH
--- NOTE | 2016-12-10 17:59 | Operative Report ---
Operative/Inv Procedure Report Surgery Date: 12/10/16 Name of Procedure: right mid-ureter stone (8mm) with hydronephrosis: fluoroscopy. cystoscopy Pre-Operative Diagnosis: right ureter stone with hydro and colic: hematuria Post-Operative Diagnosis: right ureter stone: urethral stricture.-unable to cystoscope Estimated Blood Loss: less than 50ml Surgeon/Claim Clinician: LAURA CABRAL MD Anesthesia: moderate sedation Complications: none Operative/Procedure Note Note: The patient was taken to the operating room and placed on the ESWL table in supine position. With the patient awake, timeout was performed to cofirm correct identity, procedure, laterality, anesthesia, and other pertinent jamil- operative information. The patient's RIGHT flank was placed over the table cut- out, overlying the dome of the shockwave generator. C-arm fluroscopy, as well as renal US, was used to locate the stone, and evaluate the RIGHT kidney. The stone was faintly visible on fluoroscopy at the right mid-ureter, measuring approximately 8 mm. 60cc IV contrast was injected and after 20min the hydronephrotic right urtere funnelled to the filling defect consistent with stone: Renal US confimred hydronephrosis. The right ureter stone's position was optimized for Shockwave lithotrypsy using fluoroscopy in AP and oblique views. The E.S.W.L. was initiated at low power levels x 200 shocks. After noting the patient's tolerance to the shockwaves, the shock wave power level was quickly maximized. Toward the end of the procedure, the composition of the stone had changed significantly indicating the pulverization of the ureter stone. Additionally, the contrast from the hydronephrotic kidney drained all the way to the bladder. A total of 3000 shockwaves were delivered to the stone in order to achieve adequate lithotrypsy. The patient was then frog legged, draped and prepped in usual surgical fashion. A 17 Bulgarian cystoscope sheath with a 30 angle lens was inserted into the urethra. Upon reaching the prostatic urethra, a narrow partially obstructing lumen consistent with urethral stricture was visualized. Was not able to bypass this urethral stricture. Subsequent surgery for this stricture will be planned in a few days time. The patient tolerated both the procedure well, was awakened, and taken to recovery in satisfactory condition via stretcher. The pt will be dischared home with pain meds, diet orders, and intructions to catch fragments with straining the urine. The patient is to have follow-up renal ultrasound and KUB in 1-2 weeks, prior to follow-up visit in my office. Discharge Disposition: Same Day Admissions CC: MARIANNA VAZQUEZ,LAURA
== END ==
LOC: STS 03:05
DX: N13.2 Hydronephrosis with renal and ureteral calculous obstruction (principal); N35.9 Urethral stricture, unspecified; I48.91 Unspecified atrial fibrillation; I10 Essential (primary) hypertension; K21.9 Gastro-esophageal reflux disease without esophagitis
CPT/HCPCS: J2250

== ENCOUNTER → 2016-12-12 | Day surgery (SDC) | payer OTHER ==
[~2016-12-12] VITALS: Ht 160 cm; Wt 90.7 kg
--- NOTE | 2016-12-12 14:03 | Operative Report ---
Operative/Inv Procedure Report Surgery Date: 12/12/16 Name of Procedure: cystoscopy: laser stricturotomy Pre-Operative Diagnosis: urethral stricture Post-Operative Diagnosis: same Estimated Blood Loss: scant Surgeon/Band Builder: LAURA CABRAL MD Anesthesia: moderate sedation Drains: 18 fr pyramid [place] lopez Complications: none Operative/Procedure Note Note: The patient was taken to the operating room and placed on the OR table in supine position. Timeout was performed, with the patient awake, in order to confirm, and other pertinent perioperative information. After adequate anesthesia and antibiotics the patient was then placed lithotomy stirrups draped and prepped in usual surgical fashion. A 22 Wolof cystoscope sheath with a 30 angle lens was inserted under direct visualization. Upon entering the distal bulbar urethra, a narrow stricture/scar tissue was seen with a very narrow lumen. A 0.038 Glidewire was inserted into the cystoscope and advanced into the narrow aperture without difficulty. At this point the diode laser was then inserted through the LASER cystoscope. The laser fiber was extended beyond the cystoscope, and positioned away from the gluide wire that was directly visible. With the laser fiber placed at the 12 o'clock position in direct contact with the stricture, the laser was fired in order to create a stricturotomy at the 12 o'clock position of the scar tissue. The laser was disengaged and removed. The 26 Fr. laser cystoscope was then able to enter the bulbar urethra, through the obstructing prostate, and the bladder without significant difficulty. The bladder was noted to be free of tumor, free of stone, with signficant trabeculation, and was then drained via the cystoscope. The cystoscope was then retracted back to the level of the urethral stricture. The cystoscope was then removed. A 20Fr./5cc lopez was inserted easily draining clear fluid, and the balloon was filled with 5cc sterile water. All sponge needle and instrument count were correct at the of the case. The patient tolerated procedure was then taken to the recovery room in satisfactory condition. His discharge home with antibiotics and pain medication, and to follow up in 1-2 weeks' time. Discharge Disposition: PACU CC: LAURA CABRAL MD
== END ==
LOC: STS 03:06
DX: N35.9 Urethral stricture, unspecified (principal); Z85.46 Personal history of malignant neoplasm of prostate; Z87.442 Personal history of urinary calculi; R10.31 Right lower quadrant pain; I10 Essential (primary) hypertension; F17.200 Nicotine dependence, unspecified, uncomplicated; I48.91 Unspecified atrial fibrillation; Z79.01 Long term (current) use of anticoagulants; Z79.82 Long term (current) use of aspirin; E66.9 Obesity, unspecified; Z68.35 Body mass index [BMI] 35.0-35.9, adult; K21.9 Gastro-esophageal reflux disease without esophagitis
CPT/HCPCS: J0131; J1885; J2250

== ENCOUNTER 2018-01-12 15:08 | Emergency (ER) | payer OTHER ==
[~2018-01-12] VITALS: Ht 162.6 cm; Wt 87.1 kg
[~2018-01-12 15:08] MED LIST changes: +DILTIAZEM ER120 M1 PO; +DILTIAZEM ER180 M1 PO; +DOXYCYCLINE HY100 M2 PO; +LOPRESSOR100 M1 PO; +PREDNISONE10 M2 PO
[2018-01-12 15:52] LABS: ABSOLUTE BASOPHIL COUNT 0 /CUMM (0.0-0.2); ABSOLUTE EOSINOPHIL COUNT 0.2 /CUMM (0.0-0.7); ABSOLUTE GRANULOCYTE CT 4.3 /CUMM (1.4-6.5); ABSOLUTE LYMPH COUNT 1.3 /CUMM (1.2-3.4); ABSOLUTE MONOCYTE COUNT 0.5 /CUMM (0.10-0.60); BASOPHIL % 0.5 % (0.0-2.0); EOSINOPHIL % 3.3 % (0-5); GRANULOCYTE % 67.6 % (42.2-75.2); HEMATOCRIT 37.2 % (42-52); MEAN CORPUSCULAR HGB 28.3 PG (27.0-31.0); MEAN CORPUSCULAR VOLUME 83.2 FL (80.0-94.0); MEAN PLATELET VOLUME 7.8 FL (7.4-10.4); PLATELET COUNT 248 /CUMM (130-400); RBC DISTRIBUTION WIDTH 15.9 % (11.5-14.5); RED BLOOD CELL CT 4.47 /CUMM (4.70-6.10); WHITE BLOOD CELL COUNT 6.3 /CUMM (4.8-10.8)
--- NOTE | 2018-01-12 16:57 | CT SCAN REPORT ---
EXAMINATION: CT ABDOMEN AND PELVIS WITHOUT CONTRAST CLINICAL INFORMATION: Left flank pain. Hematuria. COMPARISON: CT scan abdomen pelvis 12/03/2016 TECHNIQUE: Multidetector volumetric imaging was performed from the superior aspect of the liver through the pubic symphysis. Sagittal and coronal reformatted images were obtained on the technologist's workstation. DLP: 701.72 mGy-cm FINDINGS: LUNG BASES: The visualized lung bases are unremarkable. LIVER, GALLBLADDER, AND BILIARY TREE: The liver is normal in size, shape, and attenuation. No focal hepatic lesion or biliary ductal dilatation is present. The gallbladder is unremarkable with no evidence of radiopaque gallstones, gallbladder wall thickening, or obvious pericholecystic inflammatory changes. PANCREAS: There is pancreatic atrophy. No focal liver lesion. No inflammation or mass. SPLEEN: Unremarkable. ADRENAL GLANDS: Unremarkable. KIDNEYS AND URETERS: The kidneys are normal in size, shape, and attenuation. No hydronephrosis, hydroureter, or calculi seen. No perinephric stranding. BLADDER: Unremarkable. GASTROINTESTINAL TRACT: There is diverticulosis of the sigmoid colon and scattered diverticula of the right colon. No diverticulitis. No acute change of the bowel. No bowel obstruction. No bowel wall thickening or edema. Moderate volume of stool in the colon. The appendix is not seen. The small bowel loops are unremarkable. There is a small hiatal hernia present. Mesentery: No inflammation. No free air free fluid. ABDOMINAL WALL: No significant hernia is appreciated. LYMPH NODES: Normal. VASCULAR: There is a saccular aneurysm of the distal aorta. Aneurysm measures 5 cm transverse. The aneurysm is 6.4 cm superior inferior. There is no evidence of aneurysmal leak. No hematoma the retroperitoneum. There is atherosclerotic vascular wall calcifications of the aorta. There is atherosclerotic vascular wall calcifications of the iliac vessels without aneurysm of the iliac arteries. PELVIC VISCERA: Unremarkable. OSSEOUS STRUCTURES: Degenerative spondylosis of dorsal spine with disc height narrowing and plate spurring and facet joint arthrosis. IMPRESSION: 1. No acute abnormality. 2. 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 Atherosclerotic vascular wall calcifications of aorta.
--- NOTE | 2018-01-12 17:20 | ED GENERAL ADULT ---
History of Present Illness General Chief Complaint: Abdominal Pain/Flank Pain Stated Complaint: BACK/FLANK PAIN W/ MILD HEMATURIA?? Source: patient Exam Limitations: no limitations Vital Signs & Intake/Output Vital Signs & Intake/Output Vital Signs Date Time Temp Pulse Resp B/P B/P Pulse O2 O2 Flow FiO2 Mean Ox Delivery Rate 01/12 1745 98.2 76 18 110/84 98 Room Air 01/12 1535 96.5 70 18 103/64 97 Room Air Allergies Coded Allergies: No Known Allergies (05/11/17) Reconcile Medications Albuterol Sulfate (Proair Hfa) 90 MCG HFA.AER.AD 2 PUF INH AD PRN COPD ( Reported) Apixaban (Eliquis) 5 MG TABLET 1 TAB PO BID BLOOD THINNER (Reported) Diltiazem HCl (Diltiazem ER) 180 MG CAPSULE.ER 1 CAP PO DAILY Atrial Fibrilliation Furosemide 20 MG TABLET 1 TAB PO PRN DIURETIC (Reported) Losartan Potassium (Cozaar) 25 MG TABLET 1 TAB PO DAILY BP Metoprolol Tartrate (Lopressor) 100 MG TABLET 100 MG PO BID Atrial Fibrilliation Multivitamin (One Daily Multivitamin) 1 EACH TABLET 1 TAB PO DAILY SUPPLEMENT (Reported) Naproxen 375 MG TABLET 1 TAB PO BID PRN PAIN with food Nitroglycerin (Nitroglycerin Patch) 0.4 MG/HOUR PATCH.TD24 1 PATCH TOP DAILY HEART (Reported) Omeprazole 40 MG CAPSULE.DR 1 CAP PO PRN GI (Reported) Potassium Chloride 10 MEQ TABLET.ER 1 TAB PO DAILY SUPPLEMENT (Reported) Psyllium Husk (Metamucil) 3.4 GRAM/5.4 GRAM POWDER 1 Scoopful PO QPM CONSTIPATION (Reported) Sulfamethoxazole/Trimethoprim (Bactrim Ds Tablet) 800 MG-160 MG TABLET 1 TAB PO BID UTI Tamsulosin HCl (Flomax) 0.4 MG CAP.ER.24H 2 CAP PO QPM PROSTATE (Reported) Triage Note: PT STATES HE IS HAVING BACK PAIN. THINKS I HAVE A STONE. PT STATES WHEN HE URINATED THIS AM HE HAD SOME BLOOD IN HIS URINE. PT WITH HX OF KIDNEY STONES. Triage Nurses Notes Reviewed? yes Onset: Gradual Duration: constant Timing: recent history Injury Environment: home HPI: Patient is an 79-year-old male who presents emergency room with concerns of generalized abdominal pain hematuria and dysuria for the past week. Patient can tolerate by mouth with no change in symptoms denies any fever chills nausea vomiting testicular pain or swelling complains of minimal 1/10 localized abdominal pain Patient also is complaining of a chronic history of right-sided lateral back pain and which he denies any mechanism injury or trauma denies any extremity paresthesia weakness or pain Patient states that lumbar spine movements make worse (Matthew Lynch) Past History Travel History Traveled to [place] past 21 day No Medical History Any Pertinent Medical History? see below for history Neurological: NONE EENT: NONE Cardiovascular: AFIB, CAD, hypertension, CARDIAC CATH SEPTEMBER 2016 WITH ONE ARTERY 100% OCC Respiratory: COPD Gastrointestinal: GERD, RECTAL ABCESS 25 YRS AGO HIATAL HERNIA Hepatic: NONE Renal: nephrolithiasis Musculoskeletal: osteoarthritis Psychiatric: NONE Endocrine: NONE Blood Disorders: NONE Cancer(s): prostate adenoma STONEHAND/Reproductive: NONE History of MRSA: No History of VRE: No History of CDIFF: No Influenza Vaccine: 03/20/17 Surgical History Surgical History: appendectomy, hernia repair-inguinal, STENTS CARDIAC BYPASS tonsillectomy back surgery for herniated disc Psychosocial History Who do you live with Spouse Services at Home None What is your primary language German Tobacco Use: Quit >30 days ago ETOH Use: denies use Illicit Drug Use: denies illicit drug use Family History Family History, If Any: FATHER FH: diabetes mellitus FATHER Relation not specified for: FH: hypertension Hx Contributory? No (Matthew Lynch) Review of Systems Review of Systems Constitutional: Reports: no symptoms. EENTM: Reports: no symptoms. Respiratory: Reports: no symptoms. Cardiovascular: Reports: no symptoms. GI: Reports: see HPI, abdominal pain. Genitourinary: Reports: see HPI. Musculoskeletal: Reports: no symptoms. Skin: Reports: no symptoms. Neurological/Psychological: Reports: no symptoms. Hematologic/Endocrine: Reports: no symptoms. Immunologic/Allergic: Reports: no symptoms. All Other Systems: Reviewed and Negative (Matthew Lynch) Physical Exam Physical Exam General Appearance: no apparent distress, alert, comfortable Head: atraumatic Eyes: Bilateral: normal appearance. Ears, Nose, Throat: hearing grossly normal Neck: normal inspection Respiratory: no respiratory distress Cardiovascular: regular rate/rhythm Gastrointestinal: normal bowel sounds, soft, MILD SUPRAPUBIC PAIN NO REBOUND TENDERNESS Back: decreased range of motion, no vertebral tenderness, right lateral muscular point tenderness decreased active range of motion normal inspection Extremities: normal inspection Skin: intact, normal color, warm/dry Core Measures ACS in differential dx? No CVA/TIA Diagnosis: No Sepsis Present: No Sepsis Focused Exam Completed? No (Andrew LEON,Matthew) Progress Differential Diagnoses I considered the following diagnoses in my evaluation of the patient: [UTI bowel obstruction cancer kidney stone pancreatitis appendicitis cholecystitis testicular torsion AAA] Plan of Care: Orders Procedure Date/time Status Add-on Test (ER Only) 01/12 1740 Active CULTURE,URINE 01/12 160 Active URINALYSIS 01/12 153 Complete COMPREHENSIVE METABOLIC PANEL 01/12 153 Complete CBC WITHOUT DIFFERENTIAL 01/12 153 Complete Laboratory Tests 01/12/18 1603: Urine Color YEL, Urine Clarity CLEAR, Urine pH 6.0, Ur Specific [place] 1.025, Urine Protein NEG, Urine Ketones NEG, Urine Nitrite NEG, Urine Bilirubin NEG, Urine Urobilinogen 0.2, Ur Leukocyte Esterase NEG, Ur Microscopic SEDIMENT EXAMINED, Urine RBC 1-3, Urine WBC 5-10 H, Ur Epithelial Cells RARE, Urine Bacteria MOD H, Urine Mucus FEW, Urine Hemoglobin TRACE-INTACT H, Urine Glucose NEG 01/12/18 1543: Anion Gap 10, Estimated GFR > 60, BUN/Creatinine Ratio 26.7 H, Glucose 112 H, Calcium 8.9, Total Bilirubin 0.4, AST 21, ALT 25, Alkaline Phosphatase 90, Total Protein 6.4, Albumin 3.7, Globulin 2.7, Albumin/Globulin Ratio 1.4, CBC w Diff NO MAN DIFF REQ, RBC 4.47 L, MCV 83.2, MCH 28.3, MCHC 34.0, RDW 15.9 H, MPV 7.8, Gran % 67.6, Lymphocytes % 21.3, Monocytes % 7.3, Eosinophils % 3.3, Basophils % 0.5, Absolute Granulocytes 4.3, Absolute Lymphocytes 1.3, Absolute Monocytes 0.5, Absolute Eosinophils 0.2, Absolute Basophils 0 Microbiology 01/12 1603 URINE ROUT: Urine Culture - RECD Patient upon initial evaluation is resting completely at bedside no apparent distress afebrile normotensive patient has minimal suprapubic pain CT scan shows no acute abnormalities, due to history of present illness and exam tonics patient has suspicion of urinary tract infection Patient has stable aortic aneurysm with CT scan showing no concerns of rupture or leak patient was offered pain medications and declines Patient also has reproducible pain upon superficial palpation of the right lateral muscular region of his back. Nexus criteria 0 patient was neurovascular intact to lower extremities CT also shows degeneration of the spine discussed results with patient No acute findings of the CT scan Urine culture pending Diagnostic Imaging: Viewed by Me: CT Scan. Radiology Impression: no acute abnormality Initial ED EKG: none Comments: PATIENT: SHEILA LAURA PRESENT AGE: 87 PATIENT ACCOUNT NO: [id number] : 29 LOCATION: [facility] ORDERING PHYSICIAN: Matthew LEON SERVICE DATE: 01/12/186 EXAM TYPE: CAT - CT ABD & PELVIS W/O IV CONTRAS EXAMINATION: CT ABDOMEN AND PELVIS WITHOUT CONTRAST CLINICAL INFORMATION: Left flank pain. Hematuria. COMPARISON: CT scan abdomen pelvis 12/03/2016 TECHNIQUE: Multidetector volumetric imaging was performed from the superior aspect of the liver through the pubic symphysis. Sagittal and coronal reformatted images were obtained on the technologist's workstation. DLP: 701.72 mGy-cm FINDINGS: LUNG BASES: The visualized lung bases are unremarkable. LIVER, GALLBLADDER, AND BILIARY TREE: The liver is normal in size, shape, and attenuation. No focal hepatic lesion or biliary ductal dilatation is present. The gallbladder is unremarkable with no evidence of radiopaque gallstones, gallbladder wall thickening, or obvious pericholecystic inflammatory changes. PANCREAS: There is pancreatic atrophy. No focal liver lesion. No inflammation or mass. SPLEEN: Unremarkable. ADRENAL GLANDS: Unremarkable. KIDNEYS AND URETERS: The kidneys are normal in size, shape, and attenuation. No hydronephrosis, hydroureter, or calculi seen. No perinephric stranding. BLADDER: Unremarkable. GASTROINTESTINAL TRACT: There is diverticulosis of the sigmoid colon and scattered diverticula of the right colon. No diverticulitis. No acute change of the bowel. No bowel obstruction. No bowel wall thickening or edema. Moderate volume of stool in the colon. The appendix is not seen. The small bowel loops are unremarkable. There is a small hiatal hernia present. Mesentery: No inflammation. No free air free fluid. ABDOMINAL WALL: No significant hernia is appreciated. LYMPH NODES: Normal. VASCULAR: There is a saccular aneurysm of the distal aorta. Aneurysm measures 5 cm transverse. The aneurysm is 6.4 cm superior inferior. There is no evidence of aneurysmal leak. No hematoma the retroperitoneum. There is atherosclerotic vascular wall calcifications of the aorta. There is atherosclerotic vascular wall calcifications of the iliac vessels without aneurysm of the iliac arteries. PELVIC VISCERA: Unremarkable. OSSEOUS STRUCTURES: Degenerative spondylosis of dorsal spine with disc height narrowing and plate spurring and facet joint arthrosis. IMPRESSION: 1. No acute abnormality. 2. 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 Atherosclerotic vascular wall calcifications of aorta. DICTATED BY: Allen Oscar MD DATE/TIME DICTATED:01/12/181645 DOUGHNUT FRYER:JIGNA DATE/TIME TRANSCRIBED:01/12/181645 CONFIDENTIAL, DO NOT COPY WITHOUT APPROPRIATE AUTHORIZATION. <Electronically signed in Other Vendor System> SIGNED BY: Allen Oscar MD 01/12/181656 (Matthew Lynch) Departure Departure Disposition: HOME OR SELF CARE Condition: Stable Clinical Impression Primary Impression: UTI (urinary tract infection) Secondary Impressions: Back pain Referrals: Mahad VAZQUEZ,Praful Mosher (PCP/Family) Kenny Camp MD Additional Instructions: As discussed begin the prescription of Bactrim for the full course, begin the prescription of Naprosyn for pain. If no better in 3 days follow-up with your primary care doctor and urologist. Prescription waiting a [facility]. Departure Forms: Customer Survey General Discharge Information Prescriptions: Current Visit Scripts Sulfamethoxazole/Trimethoprim (Bactrim Ds Tablet) 1 TAB PO BID #14 TAB Naproxen 1 TAB PO BID PRN PAIN #20 TAB with food (Matthew Lynch) PA/STAFF COUNSEL Co-Sign Statement Statement: ED Attending supervision documentation- [] I saw and evaluated the patient. I have also reviewed all the pertinent lab results and diagnostic results. I agree with the findings and the plan of care as documented in the PA's/STAFF COUNSEL's documentation. [X] I have reviewed the ED Record and agree with the PA's/STAFF COUNSEL's documentation. [] Additions or exceptions (if any) to the PAs/STAFF COUNSEL's note and plan are summarized below: [] (Jamshid Perez DO) Critical Care Note Critical Care Note Critical Care Time: non-applicable (Matthew Lynch)
[2018-01-12] MEDS ORDERED: BACTRIM DS TAB1 EACH PO (17:35)
[2018-01-12] MEDS ORDERED: NAPROXEN375 M2 PO (17:35)
[2018-01-12 17:45] VITALS: BP 110/84
== END 2018-01-12 17:46 ==
LOC: ERH 15:08
PROVIDERS: Physician Assistant
DX: N39.0 Urinary tract infection, site not specified (principal); M54.9 Dorsalgia, unspecified
CPT/HCPCS: 74176; 81001; 87086